=== PATIENT | female | born 1955 | race Caucasian/White ===

== ENCOUNTER 2017-01-19 13:57 | Emergency (ER) | payer OTHER ==
[~2017-01-19] VITALS: Ht 154.9 cm; Wt 52.3 kg
[~2017-01-19 13:57] MED LIST: ALBU8.5H3 INH; AMLO5TAB2 PO; BENA40TA55 PO; CEPH-368 PO; FURO20TA3 PO; METH750T87 PO; NITR100C PO; OXYC-229 PO; PARO30TA45 PO; SERT50TA PO
[2017-01-19] MEDS ORDERED: SODIUM CHLORIDE 0.9% 1,000 ML IV ONE (15:59)
[2017-01-19] MEDS ORDERED: LORazepam 2 MG/ML, 1ML IVPush STA (15:59)
[2017-01-19] MEDS ORDERED: SODIUM CHLORIDE FLUSH 10ML SYR IVF ONE (16:00)
[2017-01-19] MEDS ORDERED: HYDROmorphone 1 MG/ML, 1ML IVPush PRN (16:00)
[2017-01-19] MEDS ORDERED: HYDROmorphone 1 MG/ML, 1ML ONE (16:32)
[2017-01-19] MEDS ORDERED: LORazepam 2 MG/ML, 1ML ONE (16:33)
[2017-01-19 16:37] LABS: BLOOD UREA NITROGEN 5 mg/dL (7-18)
[2017-01-19 19:08] VITALS: BP 153/66
== END 2017-01-19 19:55 | disposition home or self-care (01) ==
LOC: ED 19:07
DX: M51.16 Intervertebral disc disorders with radiculopathy, lumbar region (principal); M51.36 Other intervertebral disc degeneration, lumbar region; I10 Essential (primary) hypertension
CPT/HCPCS: 36415; 72148; 80048; 82040; 85025; 96361; 96374; 96375; 99285; J1170; J2060; J7030; J7512

== ENCOUNTER 2019-01-09 14:04 | Inpatient (IN) | payer OTHER ==
[~2019-01-09] VITALS: Ht 156.2 cm; Wt 55.5 kg
[~2019-01-09 14:04] MED LIST changes: -ALBU8.5H3 INH; +ALBU8.5H8 INH; +AMLO-150 PO; -AMLO5TAB2 PO; -OXYC-229 PO; +OXYC-307 PO
--- NOTE | 2019-01-09 14:43 | NUR ---
LUNCH RN: PT PRESENTING TO ER FOR PAIN AND SWELLING OF RIGHT SIDE FACE X2 MONTHS. PT REPORTING WISDONE TOOTH REMOVED RIGHT SIDE TWO MONTHS AGO, SEEN AT [facility]LE DENTISTS PLACED ON ABX, CURRENTLY TAKING SECOND ROUND OF CLINDAMYCIN WITHOUT RELIEF OF PAIN AND SWELLING. STATES HAD US DONE IN [place] LAST WEEK, NO RESULTS REPORTED. CONNECTED TO MONITORING, HTN. SON AT BEDSIDE. CALL LIGHT WITHIN REACH. AWAITING ORDERS AT THIS TIME
--- NOTE | 2019-01-09 14:57 | NUR ---
LUNCH RN: MD TO BEDSIDE FOR INITIAL ASSESSMENT. AWAITING ORDERS AT THIS TIME
[2019-01-09] MEDS ORDERED: SODIUM CHLORIDE FLUSH 10ML SYR IVF ONE (15:00)
[2019-01-09] MEDS ORDERED: ONDANSETRON 2MG/ML, 2ML IVPush ONE (15:00)
[2019-01-09] MEDS ORDERED: MORPHINE SULFATE 4 MG/ML, 1ML ONE ×3 (15:04→17:30)
[2019-01-09] MEDS ORDERED: ONDANSETRON 2MG/ML, 2ML ONE (15:04)
[2019-01-09] MEDS: MORPHINE SULFATE 4 MG/ML, 1ML IVPush PRN ×2 (15:22→16:13)
--- NOTE | 2019-01-09 15:24 | NUR ---
Provided medicaiton per EMAR. Pt resting on gurney with warm blankets and keven hugger blanket warmer provided for comfort measures. Pt connected to NIBP, continous pulse ox, and agricultural production engineer. Both bedrails up for safety measures and call light within reach. NADN. No other needs expressed at this time.
[2019-01-09 15:30] LABS: MEAN CORPUSCULAR HEMOGLOBIN 31.9 pg (27.0-34.8); MEAN CORPUSCULAR HGB CONC 32.8 g/dL (32.4-35.8); MEAN CORPUSCULAR VOLUME 97.4 fL (80-100); MEAN PLATELET VOLUME 6.3 fL (7.4-10.4); PLATELET COUNT 408 x10^3/uL (130-400); RED BLOOD COUNT 4.17 x10^6/uL (3.82-5.3); RED CELL DISTRIBUTION WIDTH 17.5 % (9.6-15.2)
[2019-01-09 15:41] LABS: ALBUMIN 2.2 g/dL (3.4-5.0); ANION GAP 6 mmol/L (5-15); CALCIUM 8.5 mg/dL (8.5-10.1); CHLORIDE 97 mmol/L (98-107)
[2019-01-09 15:48] LABS: BASOPHILS # (AUTO) 0.01 x10^3/uL (0-0.1); BASOPHILS % (AUTO) 0 % (0-1); EOSINOPHILS % (AUTO) 0 % (1-7); LYMPHOCYTES # (AUTO) 0.84 x10^3/uL (1-3.4); LYMPHOCYTES % (AUTO) 4 % (22-44); MONOCYTES # (AUTO) 1.27 x10^3/uL (0.2-0.8); MONOCYTES % (AUTO) 6 % (2-9); NEUTROPHILS # (AUTO) 20.91 x10^3/uL (1.8-6.8); NEUTROPHILS % (AUTO) 91 % (42-75)
[2019-01-09 15:49] LABS: MD SCAN
--- NOTE | 2019-01-09 15:52 | NUR ---
Pt transported on [facility] to imaging.
--- NOTE | 2019-01-09 16:00 | NUR ---
Pt back to room from imaging on [facility]. ANDRAE. Both bed rails up for safety measures, call light within reach. No needs expressed at this time.
[2019-01-09] MEDS ORDERED: OMNIPAQUE 350 MG/ML, 75ML BOTTLE ONE (16:02)
[2019-01-09 16:11] LABS: HCT (SEDRATE) 40.6 % (34.6-47.8)
--- NOTE | 2019-01-09 16:15 | NUR ---
Pt requesting pain relief. Provided pt medicaiton per EMAR. PT appreciative. Pt's pain is 10/10 dental pain.
[2019-01-09] MEDS ORDERED: PIPERACILLIN/TAZO/PMX 3.375GM 50 ML IV ONE (17:00)
[2019-01-09] MEDS ORDERED: PIPERACILLIN/TAZO/PMX 3.375GM 50 ML ONE (17:30)
[2019-01-09] MEDS ORDERED: MORPHINE SULFATE 4 MG/ML, 1ML IVPush PRN ×2 (17:30→18:00)
[2019-01-09] MEDS ORDERED: NICOTINE 14MG/24 HR PATCH.TD24 ONE (17:43)
[2019-01-09] MEDS ORDERED: SODIUM CHLORIDE FLUSH 10ML SYR IVF PRN (18:00)
[2019-01-09] MEDS ORDERED: NICOTINE 14MG/24 HR PATCH.TD24 TD ONE (18:00)
[2019-01-09] MEDS ORDERED: ONDANSETRON 2MG/ML, 2ML IVPush PRN (18:00)
--- NOTE | 2019-01-09 18:12 | NUR ---
Provided report to ELIOT Whelan. All questions answered. Pt ready to transfer to floor from ED.
--- NOTE | 2019-01-09 18:17 | NUR ---
Reviewed pt's home medicaitons with pt. Pt states, "there is a new antidepressant I take, I can't think of the name of it."
--- NOTE | 2019-01-09 18:20 | NUR ---
Pt transfered to floor from ED and left with all personal belongings.
[2019-01-09 18:25] VITALS: BP 127/75
[2019-01-09] MEDS ORDERED: hydrALAzine 20 MG/ML, 1ML IVPush PRN (18:30)
[2019-01-09] MEDS: NICOTINE 21 MG/24 HR PATCH.TD24 TD SCH (18:30)
[2019-01-09] MEDS: SODIUM CHLORIDE 0.9% 1,000 ML IV SCH (20:18)
[2019-01-09] MEDS ORDERED: ALBUTEROL/IPRATROPIUM 2.5MG/0.5MG, 3 ML NPPB PRN (23:00)
[2019-01-09] MEDS ORDERED: morphine SULFATE 10 MG/ML, 1ML ONE (23:45)
[2019-01-09] MEDS: PIPERACILLIN/TAZO/PMX 3.375GM 50 ML IV SCH (23:56)
[2019-01-09] MEDS: morphine SULFATE 10 MG/ML, 1ML IVPush PRN (23:58)
[2019-01-10 00:16] VITALS: BP 117/70
[2019-01-10] MEDS: SODIUM CHLORIDE 0.9% 1,000 ML IV SCH ×2 (03:01→12:00)
[2019-01-10] MEDS: morphine SULFATE 10 MG/ML, 1ML IVPush PRN ×2 (04:04→08:34)
[2019-01-10 05:28] LABS: ALANINE AMINOTRANSFERASE 63 U/L (12-78); ALBUMIN 1.9 g/dL (3.4-5.0); ANION GAP 9 mmol/L (5-15); CALCIUM 7.9 mg/dL (8.5-10.1); CHLORIDE 104 mmol/L (98-107); CREATININE 0.35 mg/dL (0.55-1.02); MEAN CORPUSCULAR HEMOGLOBIN 32.9 pg (27.0-34.8); MEAN CORPUSCULAR HGB CONC 33.6 g/dL (32.4-35.8); MEAN CORPUSCULAR VOLUME 97.8 fL (80-100); MEAN PLATELET VOLUME 6.5 fL (7.4-10.4); PLATELET COUNT 350 x10^3/uL (130-400); RED BLOOD COUNT 3.78 x10^6/uL (3.82-5.3); RED CELL DISTRIBUTION WIDTH 17.4 % (9.6-15.2)
[2019-01-10 05:31] LABS: ALKALINE PHOSPHATASE 147 U/L (45-117); BILIRUBIN,TOTAL 0.8 mg/dL (0.2-1.0); TOTAL PROTEIN 4.9 g/dL (6.4-8.2)
[2019-01-10 06:31] LABS: BASOPHILS % (AUTO) 0 % (0-1); EOSINOPHILS % (AUTO) 0 % (1-7); LYMPHOCYTES # (AUTO) 0.21 x10^3/uL (1-3.4); LYMPHOCYTES % (AUTO) 1 % (22-44); MD SCAN; MONOCYTES # (AUTO) 0.03 x10^3/uL (0.2-0.8); MONOCYTES % (AUTO) 0 % (2-9); NEUTROPHILS # (AUTO) 14.37 x10^3/uL (1.8-6.8); NEUTROPHILS % (AUTO) 98 % (42-75)
[2019-01-10] MEDS: PIPERACILLIN/TAZO/PMX 3.375GM 50 ML IV SCH ×3 (06:41→17:46)
[2019-01-10 06:47] VITALS: BP 121/66
[2019-01-10] MEDS: ALBUTEROL/IPRATROPIUM 2.5MG/0.5MG, 3 ML NPPB SCH ×4 (07:30→19:35)
[2019-01-10] MEDS ORDERED: MORPHINE SULFATE 4 MG/ML, 1ML IVPush PRN (11:00)
[2019-01-10 12:01] VITALS: BP 131/81
[2019-01-10] MEDS ORDERED: BUPIVACAINE/PF 0.25% ONE (12:27)
[2019-01-10] MEDS ORDERED: LIDOCAINE 1%, 20ML ONE (12:27)
[2019-01-10] MEDS ORDERED: EPINEPHRINE 1 MG/ML, 1ML ONE (12:27)
[2019-01-10] MEDS ORDERED: MAGNESIUM SULFATE PMX 2GM/50ML 50 ML IV ONE (12:30)
[2019-01-10] MEDS ORDERED: POTASSIUM CHLORIDE 40 MEQ in SODIUM CHLORIDE 0.9% 500 ML IV ONE (12:30)
[2019-01-10] MEDS ORDERED: MIDAZOLAM 1 MG/ML, 2ML ONE (12:54)
[2019-01-10] MEDS ORDERED: FENTANYL PF 250 MCG/5ML ONE (12:54)
[2019-01-10] MEDS ORDERED: ONDANSETRON 2MG/ML, 2ML ONE ×2 (13:30)
[2019-01-10] MEDS ORDERED: LIDOCAINE-MPF 2% ,5ML ONE (13:30)
[2019-01-10] MEDS ORDERED: PROPOFOL 10 MG/ML, 20ML ONE (13:30)
[2019-01-10] MEDS ORDERED: SUCCINYLCHOLINE 20 MG/ML, 10ML ONE (13:30)
[2019-01-10] MEDS ORDERED: BACITRACIN 50,000 UNIT ONE (13:39)
[2019-01-10] MEDS ORDERED: DEXAMETHASONE 4 MG/ML, 1ML ONE ×2 (13:52)
[2019-01-10] MEDS ORDERED: FENTANYL PF 100 MCG/2ML ONE (14:13)
[2019-01-10] MEDS ORDERED: OXYcodone 5 MG/5 ML ORAL.SOL UDC ONE (14:14)
[2019-01-10] MEDS: FENTANYL PF 100 MCG/2ML IV PRN ×2 (14:15→14:25)
[2019-01-10] MEDS: OXYcodone 5 MG/5 ML ORAL.SOL UDC PO PRN ×2 (14:26→20:03)
[2019-01-10] MEDS ORDERED: MEPERIDINE/PF 25MG/0.5ML IVPush PRN (14:30)
[2019-01-10] MEDS ORDERED: PROMETHAZINE 25 MG/ML, 1ML IV PRN (14:30)
[2019-01-10] MEDS ORDERED: hydrALAzine 20 MG/ML, 1ML IV PRN (14:30)
[2019-01-10] MEDS ORDERED: HALOPERIDOL 5 MG/ML IV PRN (14:30)
[2019-01-10] MEDS ORDERED: LORazepam 2 MG/ML, 1ML IVPush PRN (14:30)
[2019-01-10] MEDS ORDERED: ALBUTEROL/IPRATROPIUM 2.5MG/0.5MG, 3 ML NPPB PRN (14:30)
[2019-01-10] MEDS ORDERED: HYDROmorphone 2 MG/ML, 1ML ONE (14:50)
[2019-01-10] MEDS: HYDROmorphone 2 MG/ML, 1ML IVPush PRN ×2 (14:51→14:58)
[2019-01-10] MEDS: NICOTINE 21 MG/24 HR PATCH.TD24 TD SCH (17:46)
[2019-01-10 19:08] VITALS: BP 153/79
[2019-01-10] MEDS: CHLORHEXIDINE 15 ML UDC MM SCH (20:03)
[2019-01-10] MEDS ORDERED: CHLORHEXIDINE GLUCONATE MOUTHWASH 0.12%, 473ML MM SCH (21:00)
[2019-01-11] MEDS: OXYcodone 5 MG/5 ML ORAL.SOL UDC PO PRN (00:05)
[2019-01-11] MEDS: SODIUM CHLORIDE 0.9% 1,000 ML IV SCH ×2 (00:05→08:24)
[2019-01-11] MEDS: PIPERACILLIN/TAZO/PMX 3.375GM 50 ML IV SCH ×4 (00:05→18:12)
[2019-01-11 00:42] VITALS: BP 123/77
[2019-01-11] MEDS ORDERED: DIPHENHYDRAMINE 50 MG/ML, 1ML IVPush ONE (03:00)
[2019-01-11 03:07] VITALS: BP 121/76
[2019-01-11 04:44] VITALS: BP 141/85
[2019-01-11 05:36] LABS: CHLORIDE 105 mmol/L (98-107); MEAN CORPUSCULAR HEMOGLOBIN 32.8 pg (27.0-34.8); MEAN CORPUSCULAR HGB CONC 33.1 g/dL (32.4-35.8); MEAN PLATELET VOLUME 6.7 fL (7.4-10.4); PLATELET COUNT 282 x10^3/uL (130-400); RED BLOOD COUNT 3.52 x10^6/uL (3.82-5.3); RED CELL DISTRIBUTION WIDTH 17.6 % (9.6-15.2)
[2019-01-11 05:44] LABS: ALANINE AMINOTRANSFERASE 180 U/L (12-78); ALBUMIN 1.9 g/dL (3.4-5.0); ALKALINE PHOSPHATASE 131 U/L (45-117); ANION GAP 6 mmol/L (5-15); BILIRUBIN,TOTAL 0.8 mg/dL (0.2-1.0); CREATININE 0.44 mg/dL (0.55-1.02); TOTAL PROTEIN 5.1 g/dL (6.4-8.2)
[2019-01-11 06:19] LABS: BASOPHILS % (AUTO) 0 % (0-1); EOSINOPHILS % (AUTO) 0 % (1-7); LYMPHOCYTES # (AUTO) 0.34 x10^3/uL (1-3.4); LYMPHOCYTES % (AUTO) 3 % (22-44); MD SCAN; MONOCYTES # (AUTO) 0.32 x10^3/uL (0.2-0.8); MONOCYTES % (AUTO) 3 % (2-9); NEUTROPHILS % (AUTO) 94 % (42-75)
[2019-01-11] MEDS: ALBUTEROL/IPRATROPIUM 2.5MG/0.5MG, 3 ML NPPB SCH (06:35)
[2019-01-11 07:06] VITALS: BP 130/80
[2019-01-11] MEDS: CHLORHEXIDINE 15 ML UDC MM SCH ×2 (08:24→19:20)
[2019-01-11] MEDS: OXYcodone IR 5MG TABLET PO PRN ×4 (09:54→22:19)
[2019-01-11 12:37] VITALS: BP 129/79
[2019-01-11] MEDS: NICOTINE 21 MG/24 HR PATCH.TD24 TD SCH (18:11)
[2019-01-11] MEDS ORDERED: POTASSIUM PHOSPHATE 44 MEQ in SODIUM CHLORIDE 0.9% 500 ML IV ONE (18:30)
[2019-01-11 20:07] VITALS: BP 131/74
[2019-01-11] MEDS: POLYETHYLENE GLYCOL 17 GM PACKET PO SCH (20:07)
[2019-01-11] MEDS: ONDANSETRON 2MG/ML, 2ML IVPush PRN (22:19)
[2019-01-12] MEDS: PIPERACILLIN/TAZO/PMX 3.375GM 50 ML IV SCH ×5 (00:09→23:26)
[2019-01-12 02:04] VITALS: BP 160/96
[2019-01-12] MEDS: OXYcodone IR 5MG TABLET PO PRN ×5 (03:31→21:28)
[2019-01-12 06:00] LABS: BASOPHILS # (AUTO) 0.03 x10^3/uL (0-0.1); BASOPHILS % (AUTO) 0 % (0-1); EOSINOPHILS # (AUTO) 0.02 x10^3/uL (0-0.4); EOSINOPHILS % (AUTO) 0 % (1-7); LYMPHOCYTES # (AUTO) 0.76 x10^3/uL (1-3.4); LYMPHOCYTES % (AUTO) 10 % (22-44); MD NO; MEAN CORPUSCULAR HGB CONC 33.2 g/dL (32.4-35.8); MEAN CORPUSCULAR VOLUME 99.4 fL (80-100); MEAN PLATELET VOLUME 6.8 fL (7.4-10.4); MONOCYTES # (AUTO) 0.75 x10^3/uL (0.2-0.8); MONOCYTES % (AUTO) 10 % (2-9); NEUTROPHILS # (AUTO) 6.06 x10^3/uL (1.8-6.8); NEUTROPHILS % (AUTO) 80 % (42-75); PLATELET COUNT 265 x10^3/uL (130-400); RED BLOOD COUNT 3.28 x10^6/uL (3.82-5.3); RED CELL DISTRIBUTION WIDTH 18.3 % (9.6-15.2)
[2019-01-12 06:04] LABS: ALANINE AMINOTRANSFERASE 105 U/L (12-78); ALBUMIN 1.8 g/dL (3.4-5.0); ANION GAP 6 mmol/L (5-15); CHLORIDE 108 mmol/L (98-107); CREATININE 0.27 mg/dL (0.55-1.02)
[2019-01-12 06:07] LABS: ALKALINE PHOSPHATASE 119 U/L (45-117); BILIRUBIN,TOTAL 0.5 mg/dL (0.2-1.0); TOTAL PROTEIN 4.8 g/dL (6.4-8.2)
[2019-01-12 08:01] VITALS: BP 155/86
[2019-01-12] MEDS: CHLORHEXIDINE 15 ML UDC MM SCH ×2 (08:32→19:43)
[2019-01-12] MEDS: POLYETHYLENE GLYCOL 17 GM PACKET PO SCH (08:33)
[2019-01-12 12:28] VITALS: BP 158/93
[2019-01-12] MEDS: NICOTINE 21 MG/24 HR PATCH.TD24 TD SCH (18:12)
[2019-01-12] MEDS: ONDANSETRON 2MG/ML, 2ML IVPush PRN (19:43)
[2019-01-12 19:55] VITALS: BP 145/74
[2019-01-13 01:58] VITALS: BP 156/87
[2019-01-13] MEDS: OXYcodone IR 5MG TABLET PO PRN ×6 (02:13→20:51)
[2019-01-13] MEDS: PIPERACILLIN/TAZO/PMX 3.375GM 50 ML IV SCH ×2 (05:41→11:13)
[2019-01-13 06:51] VITALS: BP 162/92
[2019-01-13] MEDS: POLYETHYLENE GLYCOL 17 GM PACKET PO SCH (08:15)
[2019-01-13] MEDS: CHLORHEXIDINE 15 ML UDC MM SCH ×2 (08:15→20:34)
[2019-01-13] MEDS: ERTAPENEM 1 GM in SODIUM CHLORIDE 0.9% 50 ML IV SCH (13:06)
[2019-01-13] MEDS: NICOTINE 21 MG/24 HR PATCH.TD24 TD SCH (17:38)
[2019-01-13 20:13] VITALS: BP 150/83
[2019-01-14] MEDS: OXYcodone IR 5MG TABLET PO PRN ×3 (02:19→10:51)
[2019-01-14 02:20] VITALS: BP 155/85
[2019-01-14 07:30] VITALS: BP 158/83
[2019-01-14] MEDS: CHLORHEXIDINE 15 ML UDC MM SCH (08:43)
[2019-01-14] MEDS: POLYETHYLENE GLYCOL 17 GM PACKET PO SCH (08:43)
[2019-01-14] MEDS: ERTAPENEM 1 GM in SODIUM CHLORIDE 0.9% 50 ML IV SCH (12:50)
[2019-01-14] MEDS ORDERED: CHLO473M MM (13:40)
[2019-01-14] MEDS ORDERED: ERTA1VIA IV ×2 (13:40)
[2019-01-14] MEDS ORDERED: NICO-487 TD (13:40)
[2019-01-14] MEDS ORDERED: IBUP-1222 PO (13:40)
== END 2019-01-14 15:10 | disposition home or self-care (01) | DRG 853 ==
LOC: ED 16:03 → SUATTDRO 17:41 → EDIP 18:05 → 4NOR 18:22 → DCLOUNGE 01-14 14:57
PROVIDERS: ADMIT Internal Medicine; ATTEND Internal Medicine
PROC: 0W930ZZ Drainage of Oral Cavity and Throat, Open Approach (ICD-10-PCS; principal; 2019-01-10 13:30)
PROC: 02HV33Z Insertion of Infusion Device into Superior Vena Cava, Percutaneous Approach (ICD-10-PCS; 2019-01-13)
PROC: B5181ZA Fluoroscopy of Superior Vena Cava using Low Osmolar Contrast, Guidance (ICD-10-PCS; 2019-01-13)
PROC: B548ZZA Ultrasonography of Superior Vena Cava, Guidance (ICD-10-PCS; 2019-01-13)
DX: A41.9 Sepsis, unspecified organism (principal); E43 Unspecified severe protein-calorie malnutrition; E87.1 Hypo-osmolality and hyponatremia; L03.211 Cellulitis of face; M60.009 Infective myositis, unspecified site; E83.39 Other disorders of phosphorus metabolism; E83.42 Hypomagnesemia; E87.6 Hypokalemia; F17.200 Nicotine dependence, unspecified, uncomplicated; I10 Essential (primary) hypertension; J44.9 Chronic obstructive pulmonary disease, unspecified; K04.7 Periapical abscess without sinus; K05.6 Periodontal disease, unspecified; K70.10 Alcoholic hepatitis without ascites; R13.10 Dysphagia, unspecified; Z79.899 Other long term (current) drug therapy; Z80.1 Family history of malignant neoplasm of trachea, bronchus and lung; Z88.8 Allergy status to other drugs, medicaments and biological substances; Z68.22 Body mass index [BMI] 22.0-22.9, adult
CPT/HCPCS: 36415; 70100; J3490; J7620; 36573; 70487; 80048; 80053; 82040; 83605; 83735; 84100; 85025; 85651; 86140; 87040; 87070; 87075; 87077; 87186; 87205; 93005; 94640; G0378; J0171; J1100; J1170; J1335; J2250; J2405; J2543; J2704; J3010; J3480; Q9967; C1751; J0330; J1200; J2270; J3475; J7030; J7040

== ENCOUNTER 2019-01-15 12:36 | Inpatient (IN) | payer OTHER ==
[~2019-01-15] VITALS: Ht 154.9 cm; Wt 57.0 kg
[~2019-01-15 12:36] MED LIST changes: +CHLO473M MM; +ERTA1VIA IV; +IBUP-1222 PO; +NICO-487 TD
[2019-01-15 13:25] LABS: MEAN CORPUSCULAR HGB CONC 33.1 g/dL (32.4-35.8); MEAN CORPUSCULAR VOLUME 96.7 fL (80-100); MEAN PLATELET VOLUME 6.8 fL (7.4-10.4); PLATELET COUNT 390 x10^3/uL (130-400); RED BLOOD COUNT 4.05 x10^6/uL (3.82-5.3); RED CELL DISTRIBUTION WIDTH 17.7 % (9.6-15.2)
[2019-01-15 13:27] LABS: ALBUMIN 2.5 g/dL (3.4-5.0); ANION GAP 6 mmol/L (5-15); CALCIUM 8.9 mg/dL (8.5-10.1); CHLORIDE 99 mmol/L (98-107)
[2019-01-15 13:29] LABS: ALANINE AMINOTRANSFERASE 55 U/L (12-78); ALKALINE PHOSPHATASE 156 U/L (45-117); BILIRUBIN,TOTAL 1.2 mg/dL (0.2-1.0); CREATININE 0.52 mg/dL (0.55-1.02); TOTAL PROTEIN 6.5 g/dL (6.4-8.2)
--- NOTE | 2019-01-15 13:45 | NUR ---
OCCUPATIONAL THERAPY DIRECTOR: PT WALKED BACK FROM LOBBY TO ROOM AT THIS TIME. STEADY UPON AMBULATION. NAD NOTED.
--- NOTE | 2019-01-15 13:50 | NUR ---
PT WITH C/O GEN WEAKNESS, STATES "MY NECK AND MY BACK HURT AND IM SO WEAK I JUST WANT TO GET SOME SLEEP". PT REPORTS HAVING DIARRHEA FOR THE PAST 2-3 DAYS. PT WITH LOW K+, ORDERS BEGIN MAINTAINENCE WITH REPLACEMENT. EDMD IN TO EXAMINE PT. PT ON CONT PULSE OX, NIBP, GENERAL MERCHANDISE SALESPERSON. PT MANJIT CURTIS, SOB, AT THIS TIME.
--- NOTE | 2019-01-15 13:53 | NUR ---
late entry for 1530 pt to room at this time.
[2019-01-15 13:59] LABS: BASOPHILS # (AUTO) 0.01 x10^3/uL (0-0.1); BASOPHILS % (AUTO) 0 % (0-1); EOSINOPHILS # (AUTO) 0.03 x10^3/uL (0-0.4); EOSINOPHILS % (AUTO) 0 % (1-7); LYMPHOCYTES # (AUTO) 0.67 x10^3/uL (1-3.4); LYMPHOCYTES % (AUTO) 6 % (22-44); MD SCAN; MONOCYTES # (AUTO) 0.56 x10^3/uL (0.2-0.8); MONOCYTES % (AUTO) 5 % (2-9); NEUTROPHILS # (AUTO) 10.36 x10^3/uL (1.8-6.8); NEUTROPHILS % (AUTO) 89 % (42-75)
[2019-01-15] MEDS ORDERED: NS + 40MEQ KCL 1,000 ML IV SCH (14:00)
[2019-01-15] MEDS ORDERED: SODIUM CHLORIDE FLUSH 10ML SYR IVF PRN (15:00)
--- NOTE | 2019-01-15 15:10 | NUR ---
PT WITH C/O PAIN IN MOUTH, NECK AND BACK. PT WITH ADMIT ORDERS, EDMD TO DEFER PAIN MANAGEMENT TO ADMITTING MD Addendum: 01/15/19 at 1511 by YOLY NO OTHER NEEDS AT THIS TIME
--- NOTE | 2019-01-15 16:00 | NUR ---
ADMITTING MD TO BEDSIDE. ORDERS RECIEVED FOR TORADOL, WILL MEDICATE PT PER MAR
[2019-01-15] MEDS ORDERED: PANTOPRAZOLE 20MG TABLET ONE (16:29)
[2019-01-15] MEDS ORDERED: KETOROLAC 30 MG/1 ML ONE (16:29)
[2019-01-15] MEDS: KETOROLAC 30 MG/1 ML IVPush SCH ×2 (16:31→22:42)
[2019-01-15] MEDS: PANTOPRAZOLE 20MG TABLET PO SCH ×2 (16:31→22:42)
[2019-01-15] MEDS ORDERED: ACETAMINOPHEN 325 MG TABLET PO PRN (17:30)
[2019-01-15] MEDS ORDERED: ONDANSETRON 2MG/ML, 2ML IVPush PRN (17:30)
[2019-01-15] MEDS ORDERED: hydrALAzine 20 MG/ML, 1ML IVPush PRN (17:30)
--- NOTE | 2019-01-15 17:36 | NUR ---
REPORT CALLED TO LI RN, AWAITING TRANSPORT
--- NOTE | 2019-01-15 17:48 | NUR ---
PT CHANGED TO MEDICAL, REPORT NOW GIVEN TO SACHA MCCABE
[2019-01-15] MEDS ORDERED: MAGNESIUM SULFATE PMX 2GM/50ML 50 ML IV ONE (18:00)
[2019-01-15] MEDS: ERTAPENEM 1 GM in SODIUM CHLORIDE 0.9% 50 ML IV SCH (19:30)
[2019-01-15] MEDS: ENOXAPARIN 40 MG/0.4 ML SQ SCH (19:30)
[2019-01-15] MEDS: NICOTINE 21 MG/24 HR PATCH.TD24 TD SCH (19:31)
[2019-01-15] MEDS: OXYcodone/APAP 5/325MG TABLET PO PRN (19:31)
[2019-01-15 19:35] VITALS: BP 177/87
[2019-01-15] MEDS: POTASSIUM CHLORIDE 40 MEQ in SODIUM CHLORIDE 0.9% 500 ML IV SCH (22:41)
[2019-01-16] MEDS: OXYcodone/APAP 5/325MG TABLET PO PRN ×4 (00:47→22:58)
[2019-01-16 02:34] VITALS: BP 157/84
[2019-01-16] MEDS: POTASSIUM CHLORIDE 40 MEQ in SODIUM CHLORIDE 0.9% 500 ML IV SCH ×2 (03:07→10:12)
[2019-01-16] MEDS: KETOROLAC 30 MG/1 ML IVPush SCH ×4 (04:21→22:58)
[2019-01-16 04:57] LABS: BASOPHILS # (AUTO) 0.02 x10^3/uL (0-0.1); BASOPHILS % (AUTO) 0 % (0-1); EOSINOPHILS # (AUTO) 0.05 x10^3/uL (0-0.4); EOSINOPHILS % (AUTO) 1 % (1-7); LYMPHOCYTES # (AUTO) 0.86 x10^3/uL (1-3.4); LYMPHOCYTES % (AUTO) 9 % (22-44); MD NO; MEAN CORPUSCULAR HEMOGLOBIN 32.5 pg (27.0-34.8); MEAN CORPUSCULAR HGB CONC 33.2 g/dL (32.4-35.8); MEAN CORPUSCULAR VOLUME 97.7 fL (80-100); MEAN PLATELET VOLUME 7.3 fL (7.4-10.4); MONOCYTES # (AUTO) 0.97 x10^3/uL (0.2-0.8); MONOCYTES % (AUTO) 10 % (2-9); NEUTROPHILS # (AUTO) 7.85 x10^3/uL (1.8-6.8); NEUTROPHILS % (AUTO) 81 % (42-75); PLATELET COUNT 350 x10^3/uL (130-400); RED BLOOD COUNT 3.37 x10^6/uL (3.82-5.3); RED CELL DISTRIBUTION WIDTH 17.7 % (9.6-15.2)
[2019-01-16 05:00] LABS: ANION GAP 3 mmol/L (5-15); CALCIUM 7.9 mg/dL (8.5-10.1); CHLORIDE 103 mmol/L (98-107)
[2019-01-16 05:05] LABS: ALANINE AMINOTRANSFERASE 40 U/L (12-78); ALKALINE PHOSPHATASE 113 U/L (45-117); BILIRUBIN,TOTAL 0.7 mg/dL (0.2-1.0); CREATININE 0.32 mg/dL (0.55-1.02); TOTAL PROTEIN 5.2 g/dL (6.4-8.2)
[2019-01-16 06:45] VITALS: BP 179/97
[2019-01-16] MEDS: PANTOPRAZOLE 20MG TABLET PO SCH ×2 (08:20→20:42)
[2019-01-16 09:27] LABS: CLOSTRIDIUM DIFFICILE ANTIGEN NEGATIVE; CLOSTRIDIUM DIFFICILE TOXIN NEGATIVE (Negative)
[2019-01-16] MEDS ORDERED: MAGNESIUM SULFATE PMX 2GM/50ML 50 ML IV ONE (10:00)
[2019-01-16 14:00] VITALS: BP 152/80
[2019-01-16] MEDS ORDERED: LIDODERM 5% PATCH TD SCH (14:00)
[2019-01-16] MEDS ORDERED: ALBUTEROL SULFATE 2.5 MG/3 ML ONE (14:02)
[2019-01-16] MEDS: ALBUTEROL SULFATE 2.5 MG/3 ML NPPB PRN (14:10)
[2019-01-16] MEDS: POTASSIUM PHOSPHATE 44 MEQ in SODIUM CHLORIDE 0.9% 500 ML IV SCH ×2 (14:53→22:58)
[2019-01-16] MEDS ORDERED: LIDODERM 5% PATCH TD PRN (15:00)
[2019-01-16] MEDS: ENOXAPARIN 40 MG/0.4 ML SQ SCH (17:23)
[2019-01-16] MEDS: NICOTINE 21 MG/24 HR PATCH.TD24 TD SCH (17:23)
[2019-01-16] MEDS: ERTAPENEM 1 GM in SODIUM CHLORIDE 0.9% 50 ML IV SCH (18:09)
[2019-01-16 18:54] VITALS: BP 158/84
[2019-01-17 00:42] VITALS: BP 161/92
[2019-01-17] MEDS: KETOROLAC 30 MG/1 ML IVPush SCH ×4 (05:00→23:11)
[2019-01-17 05:31] LABS: BASOPHILS # (AUTO) 0.02 x10^3/uL (0-0.1); BASOPHILS % (AUTO) 0 % (0-1); EOSINOPHILS # (AUTO) 0.07 x10^3/uL (0-0.4); EOSINOPHILS % (AUTO) 1 % (1-7); LYMPHOCYTES # (AUTO) 1.15 x10^3/uL (1-3.4); LYMPHOCYTES % (AUTO) 15 % (22-44); MD NO; MEAN CORPUSCULAR HEMOGLOBIN 32.2 pg (27.0-34.8); MEAN CORPUSCULAR HGB CONC 33.1 g/dL (32.4-35.8); MEAN CORPUSCULAR VOLUME 97.3 fL (80-100); MEAN PLATELET VOLUME 7.3 fL (7.4-10.4); MONOCYTES # (AUTO) 1.08 x10^3/uL (0.2-0.8); MONOCYTES % (AUTO) 14 % (2-9); NEUTROPHILS # (AUTO) 5.33 x10^3/uL (1.8-6.8); NEUTROPHILS % (AUTO) 70 % (42-75); PLATELET COUNT 359 x10^3/uL (130-400); RED BLOOD COUNT 3.05 x10^6/uL (3.82-5.3); RED CELL DISTRIBUTION WIDTH 17.6 % (9.6-15.2)
[2019-01-17 05:45] LABS: CHLORIDE 107 mmol/L (98-107)
[2019-01-17 06:04] LABS: ALANINE AMINOTRANSFERASE 28 U/L (12-78); ALKALINE PHOSPHATASE 100 U/L (45-117); ANION GAP 5 mmol/L (5-15); BILIRUBIN,TOTAL 0.9 mg/dL (0.2-1.0); CALCIUM 7.7 mg/dL (8.5-10.1); CREATININE 0.31 mg/dL (0.55-1.02)
[2019-01-17 06:49] VITALS: BP 171/88
[2019-01-17] MEDS: PANTOPRAZOLE 20MG TABLET PO SCH ×2 (08:22→20:12)
[2019-01-17] MEDS: OXYcodone/APAP 5/325MG TABLET PO PRN ×3 (08:22→23:11)
[2019-01-17] MEDS: ALBUTEROL SULFATE 2.5 MG/3 ML NPPB PRN (08:45)
[2019-01-17] MEDS: CHLORHEXIDINE 15 ML UDC MM SCH ×2 (12:45→20:12)
[2019-01-17 12:57] VITALS: BP 147/75
[2019-01-17] MEDS: ERTAPENEM 1 GM in SODIUM CHLORIDE 0.9% 50 ML IV SCH (17:38)
[2019-01-17] MEDS: ENOXAPARIN 40 MG/0.4 ML SQ SCH (17:39)
[2019-01-17] MEDS: NICOTINE 21 MG/24 HR PATCH.TD24 TD SCH (17:39)
[2019-01-17 19:36] VITALS: BP 169/93
[2019-01-18 03:07] VITALS: BP 163/84
[2019-01-18] MEDS: KETOROLAC 30 MG/1 ML IVPush SCH ×4 (04:58→23:16)
[2019-01-18] MEDS: OXYcodone/APAP 5/325MG TABLET PO PRN ×3 (04:59→22:02)
[2019-01-18 05:12] LABS: HCT (SEDRATE) 29.9 % (34.6-47.8)
[2019-01-18 06:43] VITALS: BP 144/86
[2019-01-18] MEDS: PANTOPRAZOLE 20MG TABLET PO SCH ×2 (09:37→20:03)
[2019-01-18] MEDS: CHLORHEXIDINE 15 ML UDC MM SCH ×2 (09:37→21:59)
[2019-01-18 12:52] VITALS: BP 137/76
[2019-01-18] MEDS: NICOTINE 21 MG/24 HR PATCH.TD24 TD SCH (17:09)
[2019-01-18] MEDS: ENOXAPARIN 40 MG/0.4 ML SQ SCH (17:10)
[2019-01-18] MEDS ORDERED: DIPHENHYDRAMINE 25 MG CAPSULE PO PRN (17:30)
[2019-01-18] MEDS: ERTAPENEM 1 GM in SODIUM CHLORIDE 0.9% 50 ML IV SCH (17:37)
[2019-01-18 19:22] VITALS: BP 162/82
[2019-01-19 01:12] VITALS: BP 158/79
[2019-01-19] MEDS: KETOROLAC 30 MG/1 ML IVPush SCH ×3 (05:14→14:43)
[2019-01-19 08:03] VITALS: BP 153/81
[2019-01-19] MEDS: OXYcodone/APAP 5/325MG TABLET PO PRN ×2 (08:31→14:57)
[2019-01-19] MEDS: PANTOPRAZOLE 20MG TABLET PO SCH (08:31)
[2019-01-19] MEDS: CHLORHEXIDINE 15 ML UDC MM SCH (08:31)
[2019-01-19 12:38] VITALS: BP 162/73
[2019-01-19] MEDS: ERTAPENEM 1 GM in SODIUM CHLORIDE 0.9% 50 ML IV SCH (14:57)
[2019-01-19] MEDS ORDERED: ONDA4TAB13 SL (16:08)
[2019-01-19] MEDS ORDERED: ACET325T14 PO (16:08)
[2019-01-19] MEDS ORDERED: ERTA1VIA IV (16:08)
[2019-01-19] MEDS ORDERED: PANT20TA3 PO (16:08)
[2019-01-19] MEDS ORDERED: POTA20PA31 PO (16:08)
== END 2019-01-19 17:27 | DRG 641 ==
LOC: ED 14:33 → EDIP 14:34 → ED 14:35 → 3NW 18:06
PROVIDERS: ADMIT Internal Medicine; ATTEND Internal Medicine
DX: E87.6 Hypokalemia (principal); L03.211 Cellulitis of face; M60.009 Infective myositis, unspecified site; K04.7 Periapical abscess without sinus; K02.9 Dental caries, unspecified; B96.20 Unspecified Escherichia coli [E. coli] as the cause of diseases classified elsewhere; E83.39 Other disorders of phosphorus metabolism; E83.42 Hypomagnesemia; E83.51 Hypocalcemia; F10.10 Alcohol abuse, uncomplicated; F17.200 Nicotine dependence, unspecified, uncomplicated; I10 Essential (primary) hypertension; J44.9 Chronic obstructive pulmonary disease, unspecified; K05.6 Periodontal disease, unspecified; K70.10 Alcoholic hepatitis without ascites; Z80.1 Family history of malignant neoplasm of trachea, bronchus and lung; Z88.8 Allergy status to other drugs, medicaments and biological substances
CPT/HCPCS: 36415; 99285; J7613; 80053; 80074; 83735; 84100; 85025; 85651; 86140; 87324; 93005; 94640; G0378; J1335; J1650; J1885; J3480; J0360; J3475; J7040; Q0163

== ENCOUNTER 2019-10-15 13:52 | Inpatient (IN) | payer OTHER ==
[~2019-10-15] VITALS: Ht 154.9 cm; Wt 44.9 kg
[~2019-10-15 13:52] MED LIST changes: +ACET325T14 PO; +ONDA4TAB13 SL; +PANT20TA3 PO; +POTA20PA31 PO
[2019-10-15 14:39] LABS: BASOPHILS # (AUTO) 0.03 x10^3/uL (0-0.1); BASOPHILS % (AUTO) 0 % (0-1); EOSINOPHILS # (AUTO) 0.01 x10^3/uL (0-0.4); EOSINOPHILS % (AUTO) 0 % (1-7); LYMPHOCYTES % (AUTO) 7 % (22-44); MD NO; MEAN CORPUSCULAR HEMOGLOBIN 33.2 pg (27.0-34.8); MEAN CORPUSCULAR HGB CONC 33.9 g/dL (32.4-35.8); MEAN CORPUSCULAR VOLUME 97.9 fL (80-100); MEAN PLATELET VOLUME 8.5 fL (7.4-10.4); MONOCYTES # (AUTO) 0.74 x10^3/uL (0.2-0.8); MONOCYTES % (AUTO) 4 % (2-9); NEUTROPHILS # (AUTO) 14.88 x10^3/uL (1.8-6.8); NEUTROPHILS % (AUTO) 88 % (42-75); PLATELET COUNT 378 x10^3/uL (130-400); RED BLOOD COUNT 3.76 x10^6/uL (3.82-5.3); RED CELL DISTRIBUTION WIDTH 14.2 % (9.6-15.2)
[2019-10-15 14:50] LABS: ALANINE AMINOTRANSFERASE 23 U/L (12-78); ALBUMIN 2.4 g/dL (3.4-5.0); ANION GAP 14 mmol/L (5-15); CALCIUM 8.8 mg/dL (8.5-10.1); CHLORIDE 90 mmol/L (98-107); CREATININE 1.38 mg/dL (0.55-1.02)
[2019-10-15 14:52] LABS: ALKALINE PHOSPHATASE 153 U/L (45-117); BILIRUBIN,TOTAL 0.7 mg/dL (0.2-1.0); TOTAL PROTEIN 6.1 g/dL (6.4-8.2)
[2019-10-15] MEDS ORDERED: SODIUM CHLORIDE 0.9% 1,000ML IVBOLUS ONE (15:00)
[2019-10-15] MEDS ORDERED: POTASSIUM CHLORIDE 20 MEQ PACKET PO ONE (15:00)
[2019-10-15] MEDS ORDERED: POTASSIUM CHLORIDE 40 MEQ in SODIUM CHLORIDE 0.9% 500 ML IV ONE (15:00)
[2019-10-15] MEDS ORDERED: POTASSIUM CHLORIDE 20 MEQ TAB.ER.PRT ONE (15:06)
[2019-10-15] MEDS ORDERED: POTASSIUM CHLORIDE 20 MEQ PACKET ONE (15:08)
[2019-10-15 15:10] LABS: PROTHROMBIN TIME 10.6 Seconds (9.6-11.5)
--- NOTE | 2019-10-15 15:15 | NUR ---
IV ESTABLISHED BY ELIOT SMITH. PT MEDICATED PER EMAR FOR HYPO K. K GTT REQUESTED FROM PHARMACY. BP/SPO2/ECG MONITORING IN PLACE. NSR ON MONITOR.
--- NOTE | 2019-10-15 15:30 | NUR ---
CONVERSATION HAD WITH ERP REGARDING LABS. PER ERP, NO BC/ABX INFECTION IS NOT SUSPECTED.
--- NOTE | 2019-10-15 15:47 | NUR ---
K+ GTT INITIATED. K+ 2.5. NSR ON MONITOR. ANTWAN CP/DIZZINESS/WEAKNESS. Addendum: 10/15/19 at 1753 by LWEGENER PT AWARE OF NEED FOR UA. UNABLE TO PROVIDE AT THIS TIME.
[2019-10-15] MEDS ORDERED: OXYC-432 PO (15:50)
[2019-10-15] MEDS ORDERED: VENL150T PO (15:50)
[2019-10-15] MEDS ORDERED: DOCUSATE 100 MG CAPSULE PO PRN (17:00)
[2019-10-15] MEDS ORDERED: POLYETHYLENE GLYCOL 17 GM PACKET PO PRN (17:00)
[2019-10-15] MEDS ORDERED: ONDANSETRON ODT 4 MG PO PRN (17:00)
[2019-10-15] MEDS ORDERED: ONDANSETRON 2MG/ML, 2ML IVPush PRN (17:00)
--- NOTE | 2019-10-15 17:24 | NUR ---
PT AMBULATED STEADILY TO RESTROOM TO PROVIDE UA. UA COLLECTED AND WALKED TO LABN. PT TO CT. K+ GTT PAUSED FOR SCAN.
[2019-10-15] MEDS ORDERED: LORazepam 0.5MG TABLET PO PRN (17:30)
[2019-10-15] MEDS: THIAMINE 100MG TABLET PO SCH (17:30)
[2019-10-15] MEDS ORDERED: LORazepam 1MG TABLET PO PRN ×4 (17:30)
[2019-10-15] MEDS ORDERED: OMNIPAQUE 350 MG/ML, 100ML BOTTLE ONE (17:43)
--- NOTE | 2019-10-15 17:54 | NUR ---
REPORT TO ELIOT GALINDO.
[2019-10-15 17:57] LABS: CULTURE INDICATED? YES; MICROSCOPIC INDICATED
[2019-10-15 18:13] LABS: HCT (SEDRATE) 28.2 % (34.6-47.8)
[2019-10-15] MEDS: MIRTAZAPINE 30 MG TABLET PO SCH (20:37)
[2019-10-15] MEDS: FOLIC ACID 1 MG TABLET PO SCH (20:37)
[2019-10-15] MEDS: NICOTINE 14MG/24 HR PATCH.TD24 TD PRN (20:39)
[2019-10-15] MEDS: HEPARIN 5,000 UNITS/ML, 1ML SQ SCH (20:39)
[2019-10-15] MEDS: OXYcodone/APAP 5/325MG TABLET PO PRN ×2 (20:53→20:57)
[2019-10-15] MEDS: NS + 20MEQ KCL 1,000 ML IV SCH (22:33)
[2019-10-15 22:44] VITALS: BP 116/69
[2019-10-16 00:11] VITALS: BP 146/83
[2019-10-16] MEDS: HEPARIN 5,000 UNITS/ML, 1ML SQ SCH ×3 (06:23→20:37)
[2019-10-16] MEDS: NS + 20MEQ KCL 1,000 ML IV SCH ×2 (06:42→20:37)
[2019-10-16 07:48] VITALS: BP 114/79
[2019-10-16 08:43] LABS: BASOPHILS # (AUTO) 0.03 x10^3/uL (0-0.1); BASOPHILS % (AUTO) 0 % (0-1); EOSINOPHILS # (AUTO) 0.05 x10^3/uL (0-0.4); EOSINOPHILS % (AUTO) 0 % (1-7); LYMPHOCYTES # (AUTO) 1.01 x10^3/uL (1-3.4); LYMPHOCYTES % (AUTO) 6 % (22-44); MD NO; MEAN CORPUSCULAR HEMOGLOBIN 33.9 pg (27.0-34.8); MEAN CORPUSCULAR HGB CONC 33.9 g/dL (32.4-35.8); MEAN CORPUSCULAR VOLUME 99.9 fL (80-100); MEAN PLATELET VOLUME 8.3 fL (7.4-10.4); MONOCYTES # (AUTO) 0.63 x10^3/uL (0.2-0.8); MONOCYTES % (AUTO) 4 % (2-9); NEUTROPHILS # (AUTO) 14.26 x10^3/uL (1.8-6.8); NEUTROPHILS % (AUTO) 89 % (42-75); PLATELET COUNT 312 x10^3/uL (130-400); RED BLOOD COUNT 3.22 x10^6/uL (3.82-5.3); RED CELL DISTRIBUTION WIDTH 14.6 % (9.6-15.2)
[2019-10-16 08:44] LABS: HEMOGRAM NOTE RECHECKED
[2019-10-16 08:48] LABS: ANION GAP 9 mmol/L (5-15); CALCIUM 7.7 mg/dL (8.5-10.1); CHLORIDE 111 mmol/L (98-107); CREATININE 0.82 mg/dL (0.55-1.02)
[2019-10-16] MEDS ORDERED: POTASSIUM CHLORIDE 40 MEQ in SODIUM CHLORIDE 0.9% 500 ML IV ONE (09:00)
[2019-10-16] MEDS: THIAMINE 100MG TABLET PO SCH (09:49)
[2019-10-16] MEDS: MULTIVITAMINS/MINERALS TABLET PO SCH (09:49)
[2019-10-16] MEDS: FOLIC ACID 1 MG TABLET PO SCH (09:50)
[2019-10-16] MEDS: OXYcodone/APAP 5/325MG TABLET PO PRN ×2 (11:02→18:33)
[2019-10-16 13:25] VITALS: BP 111/70
--- NOTE | 2019-10-16 14:13 | NUR ---
REC: Outpatient dysphagia therapy; NPO pending MBS results Addendum: 10/16/19 at 1413 by Jasmine MURPHY Amended: Links added.
--- NOTE | 2019-10-16 15:40 | NUR ---
TF goal recs: Jevity 1.2 @ 50 ml/hour, recommend advance slowly, starting at 25 ml/hour and increase 15 ml q 8 - 12 hours, need to monitor phos and mag, replace prn (pt is at risk for refeeding syndrome0
[2019-10-16 19:58] VITALS: BP 97/63
[2019-10-16] MEDS: MIRTAZAPINE 30 MG TABLET PO SCH (20:37)
[2019-10-16 23:47] LABS: MICROSCOPIC AUTO
[2019-10-16 23:48] LABS: CULTURE INDICATED? YES
[2019-10-17 00:38] VITALS: BP 129/82
[2019-10-17] MEDS: NS + 20MEQ KCL 1,000 ML IV SCH ×2 (05:28→14:02)
[2019-10-17] MEDS: HEPARIN 5,000 UNITS/ML, 1ML SQ SCH ×3 (05:33→21:56)
[2019-10-17 06:00] LABS: CHLORIDE 120 mmol/L (98-107)
[2019-10-17 06:06] LABS: ANION GAP 6 mmol/L (5-15); CALCIUM 7.3 mg/dL (8.5-10.1); CREATININE 0.52 mg/dL (0.55-1.02)
[2019-10-17 06:19] LABS: BASOPHILS # (AUTO) 0.02 x10^3/uL (0-0.1); BASOPHILS % (AUTO) 0 % (0-1); EOSINOPHILS # (AUTO) 0.02 x10^3/uL (0-0.4); EOSINOPHILS % (AUTO) 0 % (1-7); LYMPHOCYTES # (AUTO) 0.86 x10^3/uL (1-3.4); LYMPHOCYTES % (AUTO) 9 % (22-44); MD NO; MEAN CORPUSCULAR VOLUME 100.1 fL (80-100); MEAN PLATELET VOLUME 8.4 fL (7.4-10.4); MONOCYTES # (AUTO) 0.48 x10^3/uL (0.2-0.8); MONOCYTES % (AUTO) 5 % (2-9); NEUTROPHILS # (AUTO) 8.36 x10^3/uL (1.8-6.8); NEUTROPHILS % (AUTO) 86 % (42-75); PLATELET COUNT 271 x10^3/uL (130-400); RED BLOOD COUNT 2.59 x10^6/uL (3.82-5.3)
[2019-10-17] MEDS: MULTIVITAMINS/MINERALS TABLET PO SCH (08:10)
[2019-10-17] MEDS: THIAMINE 100MG TABLET PO SCH (08:10)
[2019-10-17] MEDS: OXYcodone/APAP 5/325MG TABLET PO PRN ×4 (08:10→21:57)
[2019-10-17] MEDS: NEUTRA PHOS K 250 MG TABLET PO SCH ×3 (08:10→21:57)
[2019-10-17] MEDS: FOLIC ACID 1 MG TABLET PO SCH (08:10)
[2019-10-17 08:28] VITALS: BP 116/77
[2019-10-17] MEDS ORDERED: PIPERACILLIN/TAZO/PMX 3.375GM 50 ML IV SCH (11:00)
[2019-10-17 14:11] VITALS: BP 129/54
[2019-10-17] MEDS: PIPERACILLIN/TAZO/PMX 3.375GM 50 ML IV SCH ×2 (16:09→21:56)
[2019-10-17 19:44] VITALS: BP 108/73
[2019-10-17] MEDS: MIRTAZAPINE 30 MG TABLET PO SCH (21:56)
[2019-10-18] VITALS (8 sets, daily range): BP systolic 69–114; BP diastolic 37–71
[2019-10-18] MEDS: PIPERACILLIN/TAZO/PMX 3.375GM 50 ML IV SCH ×4 (04:08→22:12)
[2019-10-18] MEDS: HEPARIN 5,000 UNITS/ML, 1ML SQ SCH ×2 (06:25→14:14)
[2019-10-18 07:28] LABS: BASOPHILS # (AUTO) 0.02 x10^3/uL (0-0.1); BASOPHILS % (AUTO) 1 % (0-1); EOSINOPHILS # (AUTO) 0.01 x10^3/uL (0-0.4); EOSINOPHILS % (AUTO) 0 % (1-7); LYMPHOCYTES # (AUTO) 0.78 x10^3/uL (1-3.4); LYMPHOCYTES % (AUTO) 19 % (22-44); MD NO; MEAN CORPUSCULAR HEMOGLOBIN 33.3 pg (27.0-34.8); MEAN CORPUSCULAR HGB CONC 32.9 g/dL (32.4-35.8); MEAN CORPUSCULAR VOLUME 101.3 fL (80-100); MEAN PLATELET VOLUME 7.8 fL (7.4-10.4); MONOCYTES # (AUTO) 0.33 x10^3/uL (0.2-0.8); MONOCYTES % (AUTO) 8 % (2-9); NEUTROPHILS # (AUTO) 3.03 x10^3/uL (1.8-6.8); NEUTROPHILS % (AUTO) 73 % (42-75); PLATELET COUNT 267 x10^3/uL (130-400); RED BLOOD COUNT 2.67 x10^6/uL (3.82-5.3); RED CELL DISTRIBUTION WIDTH 14.9 % (9.6-15.2)
[2019-10-18 07:29] LABS: ALANINE AMINOTRANSFERASE 16 U/L (12-78); ALBUMIN 1.6 g/dL (3.4-5.0); ANION GAP 6 mmol/L (5-15); CALCIUM 7.3 mg/dL (8.5-10.1); CHLORIDE 120 mmol/L (98-107)
[2019-10-18 07:31] LABS: ALKALINE PHOSPHATASE 95 U/L (45-117); BILIRUBIN,TOTAL 0.5 mg/dL (0.2-1.0); TOTAL PROTEIN 4.3 g/dL (6.4-8.2)
[2019-10-18] MEDS: OXYcodone/APAP 5/325MG TABLET PO PRN ×2 (07:50→10:38)
[2019-10-18] MEDS: MULTIVITAMINS/MINERALS TABLET PO SCH (08:42)
[2019-10-18] MEDS: FOLIC ACID 1 MG TABLET PO SCH (08:42)
[2019-10-18] MEDS: THIAMINE 100MG TABLET PO SCH (08:42)
[2019-10-18] MEDS: NEUTRA PHOS K 250 MG TABLET PO SCH (08:42)
--- NOTE | 2019-10-18 09:16 | NUR ---
REC: SNF; Pureed/NTL diet
--- NOTE | 2019-10-18 09:17 | NUR ---
REC: Crush meds
[2019-10-18] MEDS ORDERED: VANCOMYCIN PER PHARMACY MC PRN (09:30)
[2019-10-18] MEDS ORDERED: MAGNESIUM SULFATE PMX 2GM/50ML 50 ML IV ONE (09:30)
[2019-10-18] MEDS ORDERED: MIDAZOLAM 1 MG/ML, 5ML ONE (09:45)
[2019-10-18] MEDS ORDERED: PROPOFOL 10 MG/ML, 100ML IV ONE (09:45)
[2019-10-18] MEDS ORDERED: [UNRECOGNIZED DRUG - NUTRITION] IV ONE (09:45)
[2019-10-18] MEDS ORDERED: PHARMACOKINETIC MONITORING MC PRN (10:30)
[2019-10-18] MEDS: VANCOMYCIN 900 MG in SODIUM CHLORIDE 0.9% 100 ML IV SCH (11:39)
[2019-10-18] MEDS: ALBUTEROL/IPRATROPIUM 2.5MG/0.5MG, 3 ML NPPB SCH ×3 (16:00→22:24)
[2019-10-18] MEDS ORDERED: ALBUTEROL/IPRATROPIUM 2.5MG/0.5MG, 3 ML ONE (16:05)
[2019-10-18] MEDS ORDERED: methylPREDNISolone SOD SUCC 125 MG/2 ML ONE (16:20)
[2019-10-18] MEDS ORDERED: FUROSEMIDE 20 MG/2 ML IV ONE (16:30)
[2019-10-18] MEDS ORDERED: methylPREDNISolone SOD SUCC 125 MG/2 ML IVPush SCH (16:30)
[2019-10-18] MEDS ORDERED: GUAIFENESIN 200 MG TABLET PO SCH (17:00)
[2019-10-18] MEDS ORDERED: PANTOPRAZOLE 40 MG IV IVPush SCH (17:00)
[2019-10-18] MEDS: SODIUM CHLORIDE 0.9% 1,000 ML IV SCH (17:27)
[2019-10-18] MEDS ORDERED: FAMOTIDINE 20 MG/2 ML IV SCH (17:30)
[2019-10-18] MEDS ORDERED: LIDOCAINE-MPF 1%, 2ML ENDO PRN (17:30)
[2019-10-18 17:35] LABS: ALANINE AMINOTRANSFERASE 12 U/L (12-78); ALBUMIN 1.1 g/dL (3.4-5.0); ANION GAP 11 mmol/L (5-15); CHLORIDE 118 mmol/L (98-107); CREATININE 0.69 mg/dL (0.55-1.02); TRIGLYCERIDES 51 mg/dL (50-200)
[2019-10-18 17:37] LABS: ALKALINE PHOSPHATASE 63 U/L (45-117); BILIRUBIN,TOTAL 0.3 mg/dL (0.2-1.0)
[2019-10-18 17:55] LABS: MEAN CORPUSCULAR HEMOGLOBIN 33.9 pg (27.0-34.8); MEAN CORPUSCULAR HGB CONC 33.4 g/dL (32.4-35.8); MEAN CORPUSCULAR VOLUME 101.6 fL (80-100); MEAN PLATELET VOLUME 8.2 fL (7.4-10.4); PLATELET COUNT 229 x10^3/uL (130-400); RED BLOOD COUNT 1.58 x10^6/uL (3.82-5.3); RED CELL DISTRIBUTION WIDTH 15.1 % (9.6-15.2)
[2019-10-18 17:57] LABS: BASOPHILS # (AUTO) 0.01 x10^3/uL (0-0.1); BASOPHILS % (AUTO) 0 % (0-1); EOSINOPHILS # (AUTO) 0.01 x10^3/uL (0-0.4); EOSINOPHILS % (AUTO) 0 % (1-7); LYMPHOCYTES # (AUTO) 0.71 x10^3/uL (1-3.4); LYMPHOCYTES % (AUTO) 16 % (22-44); MD NO; MONOCYTES # (AUTO) 0.16 x10^3/uL (0.2-0.8); MONOCYTES % (AUTO) 4 % (2-9); NEUTROPHILS # (AUTO) 3.72 x10^3/uL (1.8-6.8); NEUTROPHILS % (AUTO) 81 % (42-75)
[2019-10-18] MEDS ORDERED: NOREPINEPHRINE 8 MG in SODIUM CHLORIDE 0.9% 242 ML IV PRN (19:00)
[2019-10-18] MEDS: PANTOPRAZOLE 40 MG IV IVPush SCH (19:22)
[2019-10-18] MEDS: MIRTAZAPINE 30 MG TABLET PO SCH (19:23)
[2019-10-18] MEDS ORDERED: ALBUMIN HUMAN 25% 100 ML IV ONE (19:30)
[2019-10-18] MEDS: FENTANYL PF 100 MCG/2ML IVPush PRN (19:40)
[2019-10-19] MEDS: SODIUM CHLORIDE 0.9% 1,000 ML IV SCH ×4 (00:45→22:01)
[2019-10-19] MEDS: PROPOFOL 100 ML IV PRN ×3 (00:48→14:33)
[2019-10-19] MEDS: FENTANYL PF 100 MCG/2ML IVPush PRN ×8 (00:49→19:58)
[2019-10-19 01:00] VITALS: BP 118/69
[2019-10-19] MEDS ORDERED: CALCIUM CHLORIDE 13.6 MEQ in SODIUM CHLORIDE 0.9% 100 ML IV ONE (01:00)
[2019-10-19] MEDS: ALBUTEROL/IPRATROPIUM 2.5MG/0.5MG, 3 ML NPPB SCH ×6 (02:48→22:20)
[2019-10-19] MEDS: PIPERACILLIN/TAZO/PMX 3.375GM 50 ML IV SCH ×4 (03:13→22:00)
[2019-10-19 03:54] LABS: ALANINE AMINOTRANSFERASE 12 U/L (12-78); ANION GAP 9 mmol/L (5-15); CALCIUM 8.2 mg/dL (8.5-10.1); CHLORIDE 120 mmol/L (98-107)
[2019-10-19 03:56] LABS: ALKALINE PHOSPHATASE 45 U/L (45-117); BASOPHILS % (AUTO) 0 % (0-1); BILIRUBIN,TOTAL 1.7 mg/dL (0.2-1.0); EOSINOPHILS % (AUTO) 0 % (1-7); LYMPHOCYTES # (AUTO) 0.34 x10^3/uL (1-3.4); LYMPHOCYTES % (AUTO) 4 % (22-44); MD NO; MEAN CORPUSCULAR HEMOGLOBIN 32.1 pg (27.0-34.8); MEAN CORPUSCULAR HGB CONC 32.5 g/dL (32.4-35.8); MEAN CORPUSCULAR VOLUME 98.8 fL (80-100); MEAN PLATELET VOLUME 8.1 fL (7.4-10.4); MONOCYTES # (AUTO) 0.15 x10^3/uL (0.2-0.8); MONOCYTES % (AUTO) 2 % (2-9); NEUTROPHILS # (AUTO) 8.16 x10^3/uL (1.8-6.8); NEUTROPHILS % (AUTO) 94 % (42-75); PLATELET COUNT 144 x10^3/uL (130-400); RED BLOOD COUNT 2.54 x10^6/uL (3.82-5.3); RED CELL DISTRIBUTION WIDTH 16.6 % (9.6-15.2); TOTAL PROTEIN 3.6 g/dL (6.4-8.2)
[2019-10-19] MEDS: VANCOMYCIN 900 MG in SODIUM CHLORIDE 0.9% 100 ML IV SCH (04:44)
[2019-10-19] MEDS ORDERED: DOCUSATE 50 MG/5 ML, 10ML UDC NG PRN (07:32)
[2019-10-19] MEDS ORDERED: ONDANSETRON ODT 4 MG NG PRN (07:33)
[2019-10-19] MEDS ORDERED: THIAMINE 100MG TABLET NG SCH (07:33)
[2019-10-19] MEDS: PANTOPRAZOLE 40 MG IV IVPush SCH ×2 (07:46→19:57)
[2019-10-19] MEDS: FOLIC ACID 1 MG TABLET NG SCH (07:49)
[2019-10-19] MEDS: MULTIVIT-MINERALS/IRON ORAL SOL NG SCH (09:36)
[2019-10-19] MEDS ORDERED: MAGNESIUM SULFATE PMX 2GM/50ML 50 ML IV ONE (12:00)
[2019-10-19] MEDS ORDERED: ATROPINE SYRINGE 0.1 MG/ML, 10ML ONE (15:17)
[2019-10-19] MEDS ORDERED: HYDROCORTISONE 100 MG INJ. ONE (16:23)
[2019-10-19] MEDS: HYDROCORTISONE 100 MG INJ. IVPush SCH ×2 (16:26→22:01)
[2019-10-19] MEDS ORDERED: LORazepam 2 MG/ML, 1ML ONE (17:23)
[2019-10-19] MEDS ORDERED: LORazepam 2 MG/ML, 1ML IVPush ONE (17:30)
[2019-10-20] MEDS: PROPOFOL 100 ML IV PRN ×3 (00:48→15:31)
[2019-10-20] MEDS: FENTANYL PF 100 MCG/2ML IVPush PRN (02:45)
[2019-10-20] MEDS: ALBUTEROL/IPRATROPIUM 2.5MG/0.5MG, 3 ML NPPB SCH ×6 (03:30→23:51)
[2019-10-20] MEDS: PIPERACILLIN/TAZO/PMX 3.375GM 50 ML IV SCH ×4 (04:00→22:08)
[2019-10-20] MEDS: HYDROCORTISONE 100 MG INJ. IVPush SCH ×4 (04:30→22:33)
[2019-10-20 05:27] LABS: ANION GAP 7 mmol/L (5-15); CALCIUM 7.7 mg/dL (8.5-10.1); CHLORIDE 124 mmol/L (98-107)
[2019-10-20 05:29] LABS: MEAN PLATELET VOLUME 8.5 fL (7.4-10.4); PLATELET COUNT 192 x10^3/uL (130-400); RED BLOOD COUNT 2.47 x10^6/uL (3.82-5.3); RED CELL DISTRIBUTION WIDTH 17.2 % (9.6-15.2)
[2019-10-20 05:36] LABS: CREATININE 0.56 mg/dL (0.55-1.02)
[2019-10-20 05:51] LABS: MD YES
[2019-10-20 05:52] LABS: BAND#(MANUAL) 1.55 x10^3/uL; BANDS%(MANUAL) 11 % (0-7); LYMPH#(MANUAL) 0.14 x10^3/uL (1-3.4); LYMPHS% (MANUAL) 1 % (22-44); MONOS#(MANUAL) 0.28 x10^3/uL (0.3-2.7); MONOS% (MANUAL) 2 % (2-9); SEG#(MANUAL) 12.13 x10^3/uL (1.8-6.8); SEGS% (MANUAL) 86 % (42-75)
[2019-10-20 05:53] LABS: <PLATELET ESTIMATE> ADEQUATE; <PLT MORPHOLOGY> NORMAL PLT MORPH; ANISOCYTOSIS 1+
[2019-10-20] MEDS ORDERED: POTASSIUM CHLORIDE 40 MEQ in SODIUM CHLORIDE 0.9% 100 ML IV ONE ×2 (07:00→16:00)
[2019-10-20] MEDS ORDERED: LORazepam 2 MG/ML, 1ML IVPush ONE (08:00)
[2019-10-20] MEDS: THIAMINE 200 MG in SODIUM CHLORIDE 0.9% 50 ML IV SCH (08:37)
[2019-10-20] MEDS: MULTIVIT-MINERALS/IRON ORAL SOL NG SCH (09:22)
[2019-10-20] MEDS: PANTOPRAZOLE 40 MG IV IVPush SCH ×2 (09:22→19:31)
[2019-10-20] MEDS: FOLIC ACID 1 MG TABLET NG SCH (09:22)
[2019-10-20] MEDS: POTASSIUM CHLORIDE 20 MEQ in DEXTROSE 5% 1,000 ML IV SCH ×2 (16:25→17:00)
[2019-10-21] VITALS (12 sets, daily range): BP systolic 102–136; BP diastolic 66–92
[2019-10-21] MEDS: PROPOFOL 100 ML IV PRN ×3 (02:14→19:46)
[2019-10-21] MEDS: ALBUTEROL/IPRATROPIUM 2.5MG/0.5MG, 3 ML NPPB SCH ×6 (02:48→22:40)
[2019-10-21] MEDS: POTASSIUM CHLORIDE 20 MEQ in DEXTROSE 5% 1,000 ML IV SCH ×2 (03:15→14:44)
[2019-10-21] MEDS: HYDROCORTISONE 100 MG INJ. IVPush SCH ×3 (04:54→20:21)
[2019-10-21] MEDS: PIPERACILLIN/TAZO/PMX 3.375GM 50 ML IV SCH (04:54)
[2019-10-21 05:07] LABS: MEAN CORPUSCULAR HEMOGLOBIN 33.4 pg (27.0-34.8); MEAN CORPUSCULAR VOLUME 98.4 fL (80-100); MEAN PLATELET VOLUME 8.4 fL (7.4-10.4); PLATELET COUNT 184 x10^3/uL (130-400); RED CELL DISTRIBUTION WIDTH 17.1 % (9.6-15.2)
[2019-10-21 05:09] LABS: ANION GAP 9 mmol/L (5-15); CHLORIDE 124 mmol/L (98-107)
[2019-10-21 05:10] LABS: CREATININE 0.56 mg/dL (0.55-1.02); TRIGLYCERIDES 77 mg/dL (50-200)
[2019-10-21 05:37] LABS: BASOPHILS # (AUTO) 0.06 x10^3/uL (0-0.1); BASOPHILS % (AUTO) 1 % (0-1); EOSINOPHILS % (AUTO) 0 % (1-7); LYMPHOCYTES # (AUTO) 0.32 x10^3/uL (1-3.4); LYMPHOCYTES % (AUTO) 3 % (22-44); MD SCAN; MONOCYTES # (AUTO) 0.45 x10^3/uL (0.2-0.8); MONOCYTES % (AUTO) 4 % (2-9); NEUTROPHILS # (AUTO) 11.58 x10^3/uL (1.8-6.8); NEUTROPHILS % (AUTO) 93 % (42-75)
[2019-10-21] MEDS ORDERED: POTASSIUM PHOSPHATE 22 MEQ in SODIUM CHLORIDE 0.9% 500 ML IV ONE (07:00)
[2019-10-21] MEDS: CEFTRIAXONE PMX 2GM/50ML 50 ML IV SCH (07:39)
[2019-10-21] MEDS: MULTIVIT-MINERALS/IRON ORAL SOL NG SCH (08:13)
[2019-10-21] MEDS: PANTOPRAZOLE 40 MG IV IVPush SCH ×2 (08:13→19:45)
[2019-10-21] MEDS: OXYcodone/APAP 5/325MG TABLET NG PRN (08:14)
[2019-10-21] MEDS: FOLIC ACID 1 MG TABLET NG SCH (08:15)
[2019-10-21] MEDS: ALBUMIN HUMAN 25% 100 ML IV SCH ×2 (08:31→18:39)
--- NOTE | 2019-10-21 09:55 | NUR ---
10/20 TF goal: w/ propofol: OSMOLITE 1.2 @ 45M//HR off propofol: OSMOLITE 1.2 @ 50ML/HR SLOW advancement to goal please
[2019-10-21] MEDS: THIAMINE 200 MG in SODIUM CHLORIDE 0.9% 50 ML IV SCH (14:10)
[2019-10-21 17:40] LABS: OCCULT BLOOD POSITIVE (NEGATIVE)
[2019-10-21] MEDS ORDERED: FUROSEMIDE 40 MG/4 ML IV ONE (18:00)
[2019-10-21] MEDS ORDERED: POTASSIUM CHLORIDE 40 MEQ in SODIUM CHLORIDE 0.9% 500 ML IV ONE (18:00)
[2019-10-21] MEDS ORDERED: OMNIPAQUE 350 MG/ML, 100ML BOTTLE ONE (18:28)
[2019-10-21 19:26] LABS: INTERNATIONAL NORMALIZED RATIO 1.08 (0.93-1.1); PROTHROMBIN TIME 11.5 Seconds (9.6-11.5)
[2019-10-22] VITALS (11 sets, daily range): BP systolic 103–157; BP diastolic 57–87
[2019-10-22] MEDS: ALBUMIN HUMAN 25% 100 ML IV SCH ×3 (00:19→16:46)
[2019-10-22] MEDS ORDERED: FUROSEMIDE 20 MG/2 ML IV PRN (01:00)
[2019-10-22] MEDS: PROPOFOL 100 ML IV PRN ×3 (01:37→18:29)
[2019-10-22] MEDS: ALBUTEROL/IPRATROPIUM 2.5MG/0.5MG, 3 ML NPPB SCH ×6 (02:55→23:10)
[2019-10-22] MEDS: HYDROCORTISONE 100 MG INJ. IVPush SCH ×4 (03:36→19:55)
[2019-10-22] MEDS: POTASSIUM CHLORIDE 20 MEQ in DEXTROSE 5% 1,000 ML IV SCH ×2 (05:07→08:48)
[2019-10-22 05:13] LABS: ANION GAP 9 mmol/L (5-15); CALCIUM 7.5 mg/dL (8.5-10.1); CHLORIDE 124 mmol/L (98-107)
[2019-10-22 05:15] LABS: CREATININE 0.49 mg/dL (0.55-1.02)
[2019-10-22 05:17] LABS: PLATELET COUNT 105 x10^3/uL (130-400)
[2019-10-22 05:42] LABS: MEAN CORPUSCULAR HEMOGLOBIN 31.6 pg (27.0-34.8); MEAN CORPUSCULAR HGB CONC 34.5 g/dL (32.4-35.8); MEAN CORPUSCULAR VOLUME 91.6 fL (80-100); MEAN PLATELET VOLUME 9.5 fL (7.4-10.4); RED BLOOD COUNT 2.56 x10^6/uL (3.82-5.3); RED CELL DISTRIBUTION WIDTH 15.2 % (9.6-15.2)
[2019-10-22 06:11] LABS: MD YES
[2019-10-22 06:13] LABS: BAND#(MANUAL) 0.26 x10^3/uL; BANDS%(MANUAL) 2 % (0-7); LYMPH#(MANUAL) 0.26 x10^3/uL (1-3.4); LYMPHS% (MANUAL) 2 % (22-44); METAMYELOCYTES# (MANUAL) 0.13 x10^3/uL (0-0); METAMYELOCYTES% (MANUAL) 1 % (0-1); MONOS% (MANUAL) 7 % (2-9); MYELOCYTES# (MANUAL) 0.26 x10^3/uL (0-0); MYELOCYTES% (MANUAL) 2 % (0-0); NRBC % (MANUAL) 1 % (0-1); SEG#(MANUAL) 11.09 x10^3/uL (1.8-6.8); SEGS% (MANUAL) 86 % (42-75)
[2019-10-22 06:14] LABS: POLYCHROMASIA 1+
[2019-10-22 06:15] LABS: <PLATELET ESTIMATE> DECREASED; <PLT MORPHOLOGY> NORMAL PLT MORPH
[2019-10-22 06:16] LABS: ANISOCYTOSIS 1+
[2019-10-22] MEDS ORDERED: POTASSIUM PHOSPHATE 22 MEQ in SODIUM CHLORIDE 0.9% 500 ML IV ONE (07:00)
[2019-10-22] MEDS ORDERED: MAGNESIUM SULFATE PMX 2GM/50ML 50 ML IV ONE (07:00)
[2019-10-22] MEDS: CEFTRIAXONE PMX 2GM/50ML 50 ML IV SCH (08:00)
[2019-10-22] MEDS ORDERED: TPN PER PHARMACY MC PRN (08:30)
[2019-10-22] MEDS: PANTOPRAZOLE 40 MG IV IVPush SCH (08:52)
[2019-10-22] MEDS: THIAMINE 200 MG in SODIUM CHLORIDE 0.9% 50 ML IV SCH (08:52)
[2019-10-22] MEDS: MULTIVIT-MINERALS/IRON ORAL SOL NG SCH (08:53)
[2019-10-22] MEDS: FOLIC ACID 1 MG TABLET NG SCH (08:53)
[2019-10-22] MEDS ORDERED: SODIUM CHLORIDE 0.9% 1,000 ML IV SCH (09:00)
[2019-10-22] MEDS ORDERED: METOCLOPRAMIDE 5 MG/ML, 2ML IVPush ONE (10:00)
[2019-10-22] MEDS ORDERED: EPINEPHRINE SYRINGE 0.1 MG/ML, 10ML ONE (11:41)
[2019-10-22] MEDS ORDERED: PANTOPRAZOLE 80 MG in SODIUM CHLORIDE 0.9% 50 ML IV ONE (12:30)
[2019-10-22] MEDS: PANTOPRAZOLE 80 MG in SODIUM CHLORIDE 0.9% 100 ML IV SCH ×2 (12:49→22:53)
[2019-10-22] MEDS ORDERED: DEXTROSE 50%, 50ML SYRINGE IVPush PRN (17:00)
[2019-10-22] MEDS ORDERED: [UNRECOGNIZED DRUG - OTHER] IV SCH (17:00)
[2019-10-22] MEDS ORDERED: DEXTROSE 10% 500 ML IV PRN (17:00)
[2019-10-22] MEDS ORDERED: DEXTROSE 5% 1,000 ML IV SCH (17:00)
[2019-10-22] MEDS ORDERED: AMINO ACID 10% IV SCH (17:00)
[2019-10-22] MEDS ORDERED: FAT EMUL IV SCH (17:00)
[2019-10-22] MEDS ORDERED: SMOF TPN IV SCH (17:00)
[2019-10-22] MEDS ORDERED: DEXTROSE 70% IV SCH (17:00)
[2019-10-22] MEDS: FENTANYL PF 100 MCG/2ML IVPush PRN (20:11)
[2019-10-22] MEDS: INSULIN REGULAR MEDIUM DOSE Q6H X 48HRS SQ-INSULIN SCH (23:37)
[2019-10-23] MEDS: FENTANYL PF 100 MCG/2ML IVPush PRN ×2 (00:03→20:27)
[2019-10-23] MEDS: PROPOFOL 100 ML IV PRN ×3 (01:15→21:47)
[2019-10-23] MEDS: ALBUMIN HUMAN 25% 100 ML IV SCH (01:42)
[2019-10-23] MEDS: HYDROCORTISONE 100 MG INJ. IVPush SCH ×4 (02:18→23:17)
[2019-10-23] MEDS: ALBUTEROL/IPRATROPIUM 2.5MG/0.5MG, 3 ML NPPB SCH ×6 (02:45→22:10)
[2019-10-23 05:27] LABS: CALCIUM 8.2 mg/dL (8.5-10.1); CHLORIDE 121 mmol/L (98-107)
[2019-10-23 05:31] LABS: ANION GAP 10 mmol/L (5-15); CREATININE 0.44 mg/dL (0.55-1.02)
[2019-10-23] MEDS: INSULIN REGULAR MEDIUM DOSE Q6H X 48HRS SQ-INSULIN SCH ×3 (06:00→16:27)
[2019-10-23 06:20] LABS: MEAN CORPUSCULAR HGB CONC 34.1 g/dL (32.4-35.8); MEAN CORPUSCULAR VOLUME 90.8 fL (80-100); RED BLOOD COUNT 2.51 x10^6/uL (3.82-5.3); RED CELL DISTRIBUTION WIDTH 15.8 % (9.6-15.2)
[2019-10-23 06:59] LABS: BASOPHILS # (AUTO) 0.03 x10^3/uL (0-0.1); BASOPHILS % (AUTO) 0 % (0-1); EOSINOPHILS % (AUTO) 0 % (1-7); LYMPHOCYTES # (AUTO) 0.39 x10^3/uL (1-3.4); LYMPHOCYTES % (AUTO) 3 % (22-44); MD SCAN; MEAN PLATELET VOLUME 9.6 fL (7.4-10.4); MONOCYTES # (AUTO) 0.19 x10^3/uL (0.2-0.8); MONOCYTES % (AUTO) 2 % (2-9); NEUTROPHILS # (AUTO) 10.97 x10^3/uL (1.8-6.8); NEUTROPHILS % (AUTO) 95 % (42-75); PLATELET COUNT 89 x10^3/uL (130-400)
[2019-10-23] MEDS: CEFTRIAXONE PMX 2GM/50ML 50 ML IV SCH (08:09)
[2019-10-23] MEDS: FOLIC ACID 1 MG TABLET NG SCH (09:00)
[2019-10-23] MEDS: THIAMINE 200 MG in SODIUM CHLORIDE 0.9% 50 ML IV SCH (09:16)
[2019-10-23] MEDS: PANTOPRAZOLE 80 MG in SODIUM CHLORIDE 0.9% 100 ML IV SCH ×2 (11:30→20:26)
[2019-10-23] MEDS ORDERED: FAT EMUL IV SCH (17:00)
[2019-10-23] MEDS ORDERED: DEXTROSE 70% IV SCH (17:00)
[2019-10-23] MEDS ORDERED: AMINO ACID 10% IV SCH (17:00)
[2019-10-23] MEDS ORDERED: SMOF TPN IV SCH (17:00)
[2019-10-23] MEDS ORDERED: [UNRECOGNIZED DRUG - OTHER] IV SCH (17:00)
[2019-10-24] MEDS: ALBUTEROL/IPRATROPIUM 2.5MG/0.5MG, 3 ML NPPB SCH ×7 (02:50→22:15)
[2019-10-24] MEDS: FENTANYL PF 100 MCG/2ML IVPush PRN ×2 (04:22→09:54)
[2019-10-24] MEDS: HYDROCORTISONE 100 MG INJ. IVPush SCH ×2 (04:22→18:17)
[2019-10-24] MEDS: PROPOFOL 100 ML IV PRN (04:29)
[2019-10-24] MEDS: INSULIN REGULAR MEDIUM DOSE Q6H X 48HRS SQ-INSULIN SCH ×4 (06:00→18:00)
[2019-10-24 06:28] LABS: MEAN CORPUSCULAR HGB CONC 33.6 g/dL (32.4-35.8); MEAN CORPUSCULAR VOLUME 92.4 fL (80-100); MEAN PLATELET VOLUME 9.5 fL (7.4-10.4); PLATELET COUNT 119 x10^3/uL (130-400); RED BLOOD COUNT 2.35 x10^6/uL (3.82-5.3); RED CELL DISTRIBUTION WIDTH 15.7 % (9.6-15.2)
[2019-10-24 06:30] LABS: ANION GAP 7 mmol/L (5-15); CALCIUM 7.7 mg/dL (8.5-10.1); CHLORIDE 121 mmol/L (98-107)
[2019-10-24 06:31] LABS: CREATININE 0.45 mg/dL (0.55-1.02); TRIGLYCERIDES 151 mg/dL (50-200)
[2019-10-24 06:48] LABS: BASOPHILS # (AUTO) 0.01 x10^3/uL (0-0.1); BASOPHILS % (AUTO) 0 % (0-1); EOSINOPHILS % (AUTO) 0 % (1-7); LYMPHOCYTES # (AUTO) 0.51 x10^3/uL (1-3.4); LYMPHOCYTES % (AUTO) 4 % (22-44); MD SCAN; MONOCYTES # (AUTO) 0.42 x10^3/uL (0.2-0.8); MONOCYTES % (AUTO) 3 % (2-9); NEUTROPHILS # (AUTO) 11.59 x10^3/uL (1.8-6.8); NEUTROPHILS % (AUTO) 93 % (42-75)
[2019-10-24] MEDS: CEFTRIAXONE PMX 2GM/50ML 50 ML IV SCH (08:00)
[2019-10-24] MEDS: PANTOPRAZOLE 80 MG in SODIUM CHLORIDE 0.9% 100 ML IV SCH ×2 (08:00→20:04)
[2019-10-24] MEDS: THIAMINE 200 MG in SODIUM CHLORIDE 0.9% 50 ML IV SCH (09:54)
[2019-10-24] MEDS: FOLIC ACID 1 MG TABLET NG SCH (09:54)
[2019-10-24] MEDS ORDERED: RACEPINEPHRINE INH 2.25%, 0.5ML NPPB PRN (10:00)
[2019-10-24] MEDS ORDERED: RACEPINEPHRINE INH 2.25%, 0.5ML ONE (10:04)
[2019-10-24] MEDS ORDERED: FUROSEMIDE 40 MG/4 ML ONE (10:18)
[2019-10-24] MEDS ORDERED: FUROSEMIDE 40 MG/4 ML IV ONE (10:30)
[2019-10-24] MEDS ORDERED: FUROSEMIDE 20 MG/2 ML IV ONE (10:30)
[2019-10-24] MEDS ORDERED: LORazepam 2 MG/ML, 1ML ONE (10:53)
[2019-10-24] MEDS ORDERED: LORazepam 2 MG/ML, 1ML IVPush ONE (11:00)
[2019-10-24 14:36] LABS: MEAN CORPUSCULAR HEMOGLOBIN 31.3 pg (27.0-34.8); MEAN CORPUSCULAR HGB CONC 33.9 g/dL (32.4-35.8); MEAN CORPUSCULAR VOLUME 92.3 fL (80-100); MEAN PLATELET VOLUME 9.2 fL (7.4-10.4); PLATELET COUNT 141 x10^3/uL (130-400); RED BLOOD COUNT 2.38 x10^6/uL (3.82-5.3); RED CELL DISTRIBUTION WIDTH 15.8 % (9.6-15.2)
[2019-10-24 14:57] LABS: BASOPHILS # (AUTO) 0.13 x10^3/uL (0-0.1); BASOPHILS % (AUTO) 1 % (0-1); EOSINOPHILS # (AUTO) 0.01 x10^3/uL (0-0.4); EOSINOPHILS % (AUTO) 0 % (1-7); LYMPHOCYTES # (AUTO) 0.82 x10^3/uL (1-3.4); LYMPHOCYTES % (AUTO) 6 % (22-44); MD SCAN; MONOCYTES # (AUTO) 0.88 x10^3/uL (0.2-0.8); MONOCYTES % (AUTO) 6 % (2-9); NEUTROPHILS # (AUTO) 12.29 x10^3/uL (1.8-6.8); NEUTROPHILS % (AUTO) 87 % (42-75)
[2019-10-24] MEDS ORDERED: [UNRECOGNIZED DRUG - OTHER] IV SCH (17:00)
[2019-10-24] MEDS ORDERED: FAT EMUL IV SCH (17:00)
[2019-10-24] MEDS ORDERED: DEXTROSE 70% IV SCH (17:00)
[2019-10-24] MEDS ORDERED: AMINO ACID 10% IV SCH (17:00)
[2019-10-24] MEDS ORDERED: SMOF TPN IV SCH (17:00)
[2019-10-24] MEDS: FILTER, DISP 1.2 MICRON FOR TPN/PVN IV PRN (18:17)
[2019-10-24] MEDS: LORazepam 2 MG/ML, 1ML IVPush PRN (20:04)
[2019-10-25] VITALS (12 sets, daily range): BP systolic 102–152; BP diastolic 55–107
[2019-10-25] MEDS: ALBUTEROL/IPRATROPIUM 2.5MG/0.5MG, 3 ML NPPB SCH ×6 (02:00→22:55)
[2019-10-25] MEDS: HYDROCORTISONE 100 MG INJ. IVPush SCH (03:55)
[2019-10-25] MEDS: LORazepam 2 MG/ML, 1ML IVPush PRN ×3 (03:55→23:44)
[2019-10-25 04:33] LABS: MEAN CORPUSCULAR HEMOGLOBIN 31.5 pg (27.0-34.8); MEAN CORPUSCULAR HGB CONC 34.2 g/dL (32.4-35.8); MEAN CORPUSCULAR VOLUME 91.9 fL (80-100); MEAN PLATELET VOLUME 9.3 fL (7.4-10.4); PLATELET COUNT 150 x10^3/uL (130-400); RED BLOOD COUNT 2.25 x10^6/uL (3.82-5.3); RED CELL DISTRIBUTION WIDTH 15.5 % (9.6-15.2)
[2019-10-25 04:39] LABS: ANION GAP 6 mmol/L (5-15); CALCIUM 7.8 mg/dL (8.5-10.1); CHLORIDE 119 mmol/L (98-107); CREATININE 0.25 mg/dL (0.55-1.02)
[2019-10-25 04:45] LABS: PREALBUMIN 22.7 mg/dL (20.0-40.0)
[2019-10-25 04:56] LABS: BASOPHILS # (AUTO) 0.05 x10^3/uL (0-0.1); BASOPHILS % (AUTO) 0 % (0-1); EOSINOPHILS # (AUTO) 0.07 x10^3/uL (0-0.4); EOSINOPHILS % (AUTO) 1 % (1-7); LYMPHOCYTES # (AUTO) 0.85 x10^3/uL (1-3.4); LYMPHOCYTES % (AUTO) 7 % (22-44); MD SCAN; MONOCYTES # (AUTO) 0.41 x10^3/uL (0.2-0.8); MONOCYTES % (AUTO) 3 % (2-9); NEUTROPHILS # (AUTO) 10.84 x10^3/uL (1.8-6.8); NEUTROPHILS % (AUTO) 89 % (42-75)
[2019-10-25] MEDS: INSULIN REGULAR MEDIUM DOSE QDAY SQ-INSULIN SCH ×2 (05:07→21:00)
[2019-10-25] MEDS: PANTOPRAZOLE 80 MG in SODIUM CHLORIDE 0.9% 100 ML IV SCH (05:34)
[2019-10-25] MEDS: CEFTRIAXONE PMX 2GM/50ML 50 ML IV SCH (08:48)
[2019-10-25] MEDS: FOLIC ACID 1 MG TABLET NG SCH (09:00)
[2019-10-25] MEDS: THIAMINE 200 MG in SODIUM CHLORIDE 0.9% 50 ML IV SCH (09:52)
[2019-10-25] MEDS: PANTOPRAZOLE 40 MG IV IVPush SCH ×2 (09:53→21:46)
[2019-10-25] MEDS: ALBUMIN HUMAN 25% 100 ML IV SCH ×2 (09:53→17:17)
[2019-10-25] MEDS: FUROSEMIDE 20 MG/2 ML IV SCH ×2 (11:40→18:11)
[2019-10-25] MEDS ORDERED: DEXTROSE 70% IV SCH (17:00)
[2019-10-25] MEDS ORDERED: AMINO ACID 10% IV SCH (17:00)
[2019-10-25] MEDS ORDERED: FAT EMUL IV SCH (17:00)
[2019-10-25] MEDS ORDERED: SMOF TPN IV SCH (17:00)
[2019-10-25] MEDS ORDERED: [UNRECOGNIZED DRUG - OTHER] IV SCH (17:00)
[2019-10-25 19:47] LABS: MEAN CORPUSCULAR HEMOGLOBIN 30.8 pg (27.0-34.8); MEAN CORPUSCULAR HGB CONC 34.3 g/dL (32.4-35.8); MEAN CORPUSCULAR VOLUME 89.7 fL (80-100); MEAN PLATELET VOLUME 9.6 fL (7.4-10.4); PLATELET COUNT 141 x10^3/uL (130-400); RED BLOOD COUNT 3.07 x10^6/uL (3.82-5.3); RED CELL DISTRIBUTION WIDTH 15.7 % (9.6-15.2)
[2019-10-25 20:07] LABS: BASOPHILS # (AUTO) 0.14 x10^3/uL (0-0.1); BASOPHILS % (AUTO) 1 % (0-1); EOSINOPHILS % (AUTO) 1 % (1-7); LYMPHOCYTES # (AUTO) 0.87 x10^3/uL (1-3.4); LYMPHOCYTES % (AUTO) 6 % (22-44); MD SCAN; MONOCYTES # (AUTO) 0.52 x10^3/uL (0.2-0.8); MONOCYTES % (AUTO) 4 % (2-9); NEUTROPHILS % (AUTO) 89 % (42-75)
[2019-10-25] MEDS ORDERED: MORPHINE SULFATE 4 MG/ML, 1ML ONE (23:55)
[2019-10-25] MEDS: MORPHINE SULFATE 4 MG/ML, 1ML IVPush PRN (23:58)
[2019-10-26] MEDS: ALBUMIN HUMAN 25% 100 ML IV SCH ×2 (01:16→08:27)
[2019-10-26] MEDS: FUROSEMIDE 20 MG/2 ML IV SCH ×2 (02:23→09:20)
[2019-10-26] MEDS: ALBUTEROL/IPRATROPIUM 2.5MG/0.5MG, 3 ML NPPB SCH ×6 (02:40→23:00)
[2019-10-26 02:58] LABS: BASOPHILS # (AUTO) 0.01 x10^3/uL (0-0.1); BASOPHILS % (AUTO) 0 % (0-1); EOSINOPHILS # (AUTO) 0.25 x10^3/uL (0-0.4); EOSINOPHILS % (AUTO) 2 % (1-7); LYMPHOCYTES # (AUTO) 0.68 x10^3/uL (1-3.4); LYMPHOCYTES % (AUTO) 6 % (22-44); MD NO; MEAN CORPUSCULAR HEMOGLOBIN 30.5 pg (27.0-34.8); MEAN CORPUSCULAR HGB CONC 33.7 g/dL (32.4-35.8); MEAN CORPUSCULAR VOLUME 90.3 fL (80-100); MEAN PLATELET VOLUME 9.4 fL (7.4-10.4); MONOCYTES # (AUTO) 0.55 x10^3/uL (0.2-0.8); MONOCYTES % (AUTO) 5 % (2-9); NEUTROPHILS # (AUTO) 9.78 x10^3/uL (1.8-6.8); NEUTROPHILS % (AUTO) 87 % (42-75); PLATELET COUNT 136 x10^3/uL (130-400); RED BLOOD COUNT 2.65 x10^6/uL (3.82-5.3); RED CELL DISTRIBUTION WIDTH 15.9 % (9.6-15.2)
[2019-10-26] MEDS ORDERED: HYDROCORTISONE 100 MG INJ. IVPush SCH (04:00)
[2019-10-26 06:51] LABS: ANION GAP 6 mmol/L (5-15); CALCIUM 8.1 mg/dL (8.5-10.1); CHLORIDE 117 mmol/L (98-107); CREATININE 0.35 mg/dL (0.55-1.02)
[2019-10-26 07:39] LABS: MEAN CORPUSCULAR HEMOGLOBIN 30.3 pg (27.0-34.8); MEAN CORPUSCULAR HGB CONC 33.3 g/dL (32.4-35.8); MEAN PLATELET VOLUME 9.6 fL (7.4-10.4); PLATELET COUNT 160 x10^3/uL (130-400); RED BLOOD COUNT 2.81 x10^6/uL (3.82-5.3)
[2019-10-26 08:00] LABS: O2 FLOW 4 L/min
[2019-10-26] MEDS: CEFTRIAXONE PMX 2GM/50ML 50 ML IV SCH (08:26)
[2019-10-26] MEDS: PANTOPRAZOLE 40 MG IV IVPush SCH ×2 (08:27→20:08)
[2019-10-26] MEDS: THIAMINE 200 MG in SODIUM CHLORIDE 0.9% 50 ML IV SCH (08:27)
[2019-10-26] MEDS: FOLIC ACID 1 MG TABLET NG SCH (08:27)
[2019-10-26] MEDS ORDERED: POTASSIUM CHLORIDE 40 MEQ in SODIUM CHLORIDE 0.9% 100 ML IV ONE (08:30)
[2019-10-26 08:33] LABS: MD YES
[2019-10-26 08:35] LABS: BAND#(MANUAL) 0.58 x10^3/uL; BANDS%(MANUAL) 4 % (0-7); LYMPH#(MANUAL) 0.43 x10^3/uL (1-3.4); LYMPHS% (MANUAL) 3 % (22-44); MONOS#(MANUAL) 1.01 x10^3/uL (0.3-2.7); MONOS% (MANUAL) 7 % (2-9); SEG#(MANUAL) 12.38 x10^3/uL (1.8-6.8); SEGS% (MANUAL) 86 % (42-75)
[2019-10-26 08:36] LABS: <PLATELET ESTIMATE> ADEQUATE; <PLT MORPHOLOGY> NORMAL PLT MORPH; ANISOCYTOSIS 1+; POLYCHROMASIA 1+
[2019-10-26 08:37] LABS: TOXIC GRAN 1+
[2019-10-26] MEDS ORDERED: BENZOCAINE 20% SPRAY 0.5ML ONE (14:02)
[2019-10-26 14:16] LABS: MEAN CORPUSCULAR HEMOGLOBIN 30.8 pg (27.0-34.8); MEAN CORPUSCULAR VOLUME 90.6 fL (80-100); MEAN PLATELET VOLUME 10.1 fL (7.4-10.4); PLATELET COUNT 155 x10^3/uL (130-400); RED BLOOD COUNT 2.57 x10^6/uL (3.82-5.3); RED CELL DISTRIBUTION WIDTH 16.3 % (9.6-15.2)
[2019-10-26 15:04] LABS: MD YES
[2019-10-26 15:06] LABS: ANISOCYTOSIS 1+; BANDS%(MANUAL) 3 % (0-7); LYMPHS% (MANUAL) 3 % (22-44); METAMYELOCYTES# (MANUAL) 0.13 x10^3/uL (0-0); METAMYELOCYTES% (MANUAL) 1 % (0-1); MONOS#(MANUAL) 0.66 x10^3/uL (0.3-2.7); MONOS% (MANUAL) 5 % (2-9); SEG#(MANUAL) 11.62 x10^3/uL (1.8-6.8); SEGS% (MANUAL) 88 % (42-75)
[2019-10-26 15:07] LABS: <PLATELET ESTIMATE> ADEQUATE; <PLT MORPHOLOGY> NORMAL PLT MORPH; POLYCHROMASIA 1+; TOXIC GRAN 1+
[2019-10-26] MEDS ORDERED: SMOF TPN IV SCH (17:00)
[2019-10-26] MEDS ORDERED: AMINO ACID 10% IV SCH (17:00)
[2019-10-26] MEDS ORDERED: FAT EMUL IV SCH (17:00)
[2019-10-26] MEDS ORDERED: [UNRECOGNIZED DRUG - OTHER] IV SCH (17:00)
[2019-10-26] MEDS ORDERED: DEXTROSE 70% IV SCH (17:00)
[2019-10-26] MEDS: INSULIN REGULAR MEDIUM DOSE QDAY SQ-INSULIN SCH (20:08)
[2019-10-26] MEDS: LORazepam 2 MG/ML, 1ML IVPush PRN (20:08)
[2019-10-27] MEDS: LORazepam 2 MG/ML, 1ML IVPush PRN (01:15)
[2019-10-27] MEDS: ALBUTEROL/IPRATROPIUM 2.5MG/0.5MG, 3 ML NPPB SCH ×3 (03:20→11:00)
[2019-10-27] MEDS ORDERED: HYDROCORTISONE 100 MG INJ. IVPush ONE (04:00)
[2019-10-27] MEDS: MORPHINE SULFATE 4 MG/ML, 1ML IVPush PRN (05:10)
[2019-10-27 05:31] LABS: MEAN CORPUSCULAR HEMOGLOBIN 30.9 pg (27.0-34.8); MEAN CORPUSCULAR HGB CONC 33.6 g/dL (32.4-35.8); MEAN CORPUSCULAR VOLUME 91.9 fL (80-100); MEAN PLATELET VOLUME 9.6 fL (7.4-10.4); PLATELET COUNT 167 x10^3/uL (130-400); RED BLOOD COUNT 2.55 x10^6/uL (3.82-5.3); RED CELL DISTRIBUTION WIDTH 16.5 % (9.6-15.2)
[2019-10-27 05:51] LABS: ANION GAP 3 mmol/L (5-15); CALCIUM 8.7 mg/dL (8.5-10.1); CHLORIDE 113 mmol/L (98-107)
[2019-10-27 05:52] LABS: CREATININE 0.29 mg/dL (0.55-1.02)
[2019-10-27 05:56] LABS: MD YES
[2019-10-27 05:57] LABS: BAND#(MANUAL) 0.12 x10^3/uL; BANDS%(MANUAL) 1 % (0-7); EOS#(MANUAL) 0.12 x10^3/uL (0.0-0.4); EOS% (MANUAL) 1 % (1-7); LYMPH#(MANUAL) 0.74 x10^3/uL (1-3.4); LYMPHS% (MANUAL) 6 % (22-44); MONOS#(MANUAL) 0.62 x10^3/uL (0.3-2.7); MONOS% (MANUAL) 5 % (2-9); SEG#(MANUAL) 10.79 x10^3/uL (1.8-6.8); SEGS% (MANUAL) 87 % (42-75)
[2019-10-27 05:59] LABS: <PLATELET ESTIMATE> ADEQUATE; <PLT MORPHOLOGY> NORMAL PLT MORPH; ANISOCYTOSIS 1+; POLYCHROMASIA 1+; TOXIC GRAN 1+
[2019-10-27] MEDS: CEFTRIAXONE PMX 2GM/50ML 50 ML IV SCH (07:53)
[2019-10-27] MEDS ORDERED: ALBUMIN HUMAN 25% 100 ML IV SCH (09:00)
[2019-10-27] MEDS: FOLIC ACID 1 MG TABLET NG SCH (09:08)
[2019-10-27] MEDS: PANTOPRAZOLE 40 MG IV IVPush SCH ×2 (09:10→21:56)
[2019-10-27] MEDS: PROPOFOL 100 ML IV PRN ×2 (09:30→20:35)
[2019-10-27] MEDS ORDERED: FUROSEMIDE 20 MG/2 ML IV SCH (10:00)
[2019-10-27] MEDS ORDERED: BISACODYL 10 MG SUPP PR PRN (10:30)
[2019-10-27] MEDS ORDERED: SENNA 176 MG/5 ML ORAL SOL NG PRN (10:30)
[2019-10-27] MEDS ORDERED: DEXTROSE 50%, 50ML SYRINGE IVPush PRN (10:30)
[2019-10-27] MEDS ORDERED: GLUCAGON 1 MG IM PRN (10:30)
[2019-10-27] MEDS ORDERED: LACTULOSE 20 GM/30 ML UDC NG PRN (10:30)
[2019-10-27] MEDS ORDERED: PHARMACY MAY ADJ FOR RENAL FX MC SCH (10:30)
[2019-10-27] MEDS: ALBUTEROL/IPRATROPIUM 2.5MG/0.5MG, 3 ML INLINE SCH ×4 (10:30→22:00)
[2019-10-27] MEDS ORDERED: SENNA/DOCUSATE TABLET NG PRN (10:30)
[2019-10-27] MEDS ORDERED: LIDOCAINE-MPF 1%, 2ML ENDO PRN (10:30)
[2019-10-27] MEDS ORDERED: DEXTROSE 4 GM TAB.CHEW PO PRN (10:30)
[2019-10-27] MEDS: THIAMINE 200 MG in SODIUM CHLORIDE 0.9% 50 ML IV SCH (11:44)
[2019-10-27] MEDS ORDERED: PROPOFOL 10 MG/ML, 100ML IV ONE (14:00)
[2019-10-27] MEDS ORDERED: SUCCINYLCHOLINE 20 MG/ML, 10ML ONE (14:00)
[2019-10-27] MEDS ORDERED: ETOMIDATE 20 MG/10 ML ONE (14:00)
[2019-10-27] MEDS ORDERED: [UNRECOGNIZED DRUG - OTHER] IV SCH (17:00)
[2019-10-27] MEDS ORDERED: AMINO ACID 10% IV SCH (17:00)
[2019-10-27] MEDS ORDERED: DEXTROSE 70% IV SCH (17:00)
[2019-10-27] MEDS ORDERED: FAT EMUL IV SCH (17:00)
[2019-10-27] MEDS ORDERED: SMOF TPN IV SCH (17:00)
[2019-10-27] MEDS: FILTER, DISP 1.2 MICRON FOR TPN/PVN IV PRN (17:20)
[2019-10-27] MEDS: INSULIN REGULAR MEDIUM DOSE QDAY SQ-INSULIN SCH (21:00)
[2019-10-27] MEDS: SODIUM CHLORIDE FLUSH 10ML SYR IVF SCH (21:56)
[2019-10-28] VITALS (10 sets, daily range): BP systolic 117–142; BP diastolic 70–85
[2019-10-28] MEDS: ALBUTEROL/IPRATROPIUM 2.5MG/0.5MG, 3 ML INLINE SCH ×6 (02:14→22:24)
[2019-10-28] MEDS: PROPOFOL 100 ML IV PRN ×3 (03:43→18:36)
[2019-10-28 05:06] LABS: ANION GAP 3 mmol/L (5-15); CALCIUM 8.5 mg/dL (8.5-10.1); CHLORIDE 113 mmol/L (98-107)
[2019-10-28 05:08] LABS: CREATININE 0.32 mg/dL (0.55-1.02)
[2019-10-28 06:03] LABS: MEAN CORPUSCULAR HGB CONC 33.5 g/dL (32.4-35.8); MEAN CORPUSCULAR VOLUME 92.7 fL (80-100); MEAN PLATELET VOLUME 9.8 fL (7.4-10.4); PLATELET COUNT 215 x10^3/uL (130-400); RED BLOOD COUNT 2.08 x10^6/uL (3.82-5.3)
[2019-10-28 06:48] LABS: MD YES
[2019-10-28 06:49] LABS: ANISOCYTOSIS 1+; LYMPH#(MANUAL) 0.58 x10^3/uL (1-3.4); LYMPHS% (MANUAL) 6 % (22-44); MONOS#(MANUAL) 0.49 x10^3/uL (0.3-2.7); MONOS% (MANUAL) 5 % (2-9); POLYCHROMASIA 1+; SEG#(MANUAL) 8.63 x10^3/uL (1.8-6.8); SEGS% (MANUAL) 89 % (42-75)
[2019-10-28 06:50] LABS: <PLATELET ESTIMATE> ADEQUATE; <PLT MORPHOLOGY> NORMAL PLT MORPH
[2019-10-28] MEDS: FOLIC ACID 1 MG TABLET NG SCH (09:00)
[2019-10-28] MEDS: CEFTRIAXONE PMX 2GM/50ML 50 ML IV SCH (10:47)
[2019-10-28] MEDS: PANTOPRAZOLE 40 MG IV IVPush SCH (10:51)
[2019-10-28] MEDS ORDERED: EPINEPHRINE SYRINGE 0.1 MG/ML, 10ML ONE (11:45)
[2019-10-28] MEDS: PANTOPRAZOLE 80 MG in SODIUM CHLORIDE 0.9% 100 ML IV SCH (16:35)
[2019-10-28] MEDS: SODIUM CHLORIDE FLUSH 10ML SYR IVF SCH ×2 (16:35→21:14)
[2019-10-28] MEDS: FILTER, DISP 1.2 MICRON FOR TPN/PVN IV PRN (16:35)
[2019-10-28] MEDS ORDERED: AMINO ACID 10% IV SCH (17:00)
[2019-10-28] MEDS ORDERED: SMOF TPN IV SCH (17:00)
[2019-10-28] MEDS ORDERED: DEXTROSE 70% IV SCH (17:00)
[2019-10-28] MEDS ORDERED: FAT EMUL IV SCH (17:00)
[2019-10-28] MEDS ORDERED: [UNRECOGNIZED DRUG - OTHER] IV SCH (17:00)
[2019-10-28] MEDS: INSULIN REGULAR MEDIUM DOSE QDAY SQ-INSULIN SCH (21:00)
[2019-10-29] MEDS: PANTOPRAZOLE 80 MG in SODIUM CHLORIDE 0.9% 100 ML IV SCH ×2 (02:01→12:18)
[2019-10-29] MEDS: ALBUTEROL/IPRATROPIUM 2.5MG/0.5MG, 3 ML INLINE SCH ×6 (02:17→22:21)
[2019-10-29] MEDS: PROPOFOL 100 ML IV PRN ×3 (03:08→19:14)
[2019-10-29 04:29] LABS: BASOPHILS # (AUTO) 0.03 x10^3/uL (0-0.1); BASOPHILS % (AUTO) 0 % (0-1); EOSINOPHILS # (AUTO) 0.07 x10^3/uL (0-0.4); EOSINOPHILS % (AUTO) 1 % (1-7); LYMPHOCYTES # (AUTO) 0.52 x10^3/uL (1-3.4); LYMPHOCYTES % (AUTO) 5 % (22-44); MD NO; MEAN CORPUSCULAR HEMOGLOBIN 30.1 pg (27.0-34.8); MEAN CORPUSCULAR HGB CONC 34.2 g/dL (32.4-35.8); MEAN CORPUSCULAR VOLUME 87.9 fL (80-100); MEAN PLATELET VOLUME 9.8 fL (7.4-10.4); MONOCYTES % (AUTO) 6 % (2-9); NEUTROPHILS # (AUTO) 9.97 x10^3/uL (1.8-6.8); NEUTROPHILS % (AUTO) 88 % (42-75); PLATELET COUNT 267 x10^3/uL (130-400); RED BLOOD COUNT 3.28 x10^6/uL (3.82-5.3); RED CELL DISTRIBUTION WIDTH 20.8 % (9.6-15.2)
[2019-10-29 04:39] LABS: ANION GAP 4 mmol/L (5-15); CALCIUM 8.6 mg/dL (8.5-10.1); CHLORIDE 109 mmol/L (98-107); CREATININE 0.26 mg/dL (0.55-1.02)
[2019-10-29] MEDS: CEFTRIAXONE PMX 2GM/50ML 50 ML IV SCH (08:25)
[2019-10-29] MEDS: FOLIC ACID 1 MG TABLET NG SCH (09:00)
[2019-10-29] MEDS: SODIUM CHLORIDE FLUSH 10ML SYR IVF SCH ×2 (12:18→21:36)
[2019-10-29] MEDS ORDERED: LIDOCAINE GEL 2%, 5ML ONE (14:41)
[2019-10-29] MEDS ORDERED: BENZOCAINE 20% SPRAY 0.5ML ONE (14:41)
[2019-10-29] MEDS ORDERED: DEXTROSE 70% IV SCH (17:00)
[2019-10-29] MEDS ORDERED: AMINO ACID 10% IV SCH (17:00)
[2019-10-29] MEDS ORDERED: [UNRECOGNIZED DRUG - OTHER] IV SCH (17:00)
[2019-10-29] MEDS ORDERED: SMOF TPN IV SCH (17:00)
[2019-10-29] MEDS ORDERED: FAT EMUL IV SCH (17:00)
[2019-10-29] MEDS: FILTER, DISP 1.2 MICRON FOR TPN/PVN IV PRN (18:00)
[2019-10-29] MEDS: INSULIN REGULAR MEDIUM DOSE QDAY SQ-INSULIN SCH (21:32)
[2019-10-29] MEDS: FENTANYL PF 100 MCG/2ML IVPush PRN (21:37)
[2019-10-30] MEDS: PROPOFOL 100 ML IV PRN ×3 (00:20→16:50)
[2019-10-30] MEDS: PANTOPRAZOLE 80 MG in SODIUM CHLORIDE 0.9% 100 ML IV SCH ×3 (01:20→22:36)
[2019-10-30] MEDS: ALBUTEROL/IPRATROPIUM 2.5MG/0.5MG, 3 ML INLINE SCH ×6 (02:30→22:26)
[2019-10-30 03:42] LABS: BASOPHILS # (AUTO) 0.04 x10^3/uL (0-0.1); BASOPHILS % (AUTO) 0 % (0-1); EOSINOPHILS # (AUTO) 0.17 x10^3/uL (0-0.4); EOSINOPHILS % (AUTO) 2 % (1-7); LYMPHOCYTES # (AUTO) 0.56 x10^3/uL (1-3.4); LYMPHOCYTES % (AUTO) 6 % (22-44); MD NO; MEAN CORPUSCULAR HEMOGLOBIN 29.7 pg (27.0-34.8); MEAN CORPUSCULAR HGB CONC 33.3 g/dL (32.4-35.8); MEAN CORPUSCULAR VOLUME 89.2 fL (80-100); MEAN PLATELET VOLUME 9.6 fL (7.4-10.4); MONOCYTES % (AUTO) 6 % (2-9); NEUTROPHILS # (AUTO) 8.74 x10^3/uL (1.8-6.8); NEUTROPHILS % (AUTO) 86 % (42-75); PLATELET COUNT 274 x10^3/uL (130-400); RED BLOOD COUNT 3.17 x10^6/uL (3.82-5.3); RED CELL DISTRIBUTION WIDTH 21.2 % (9.6-15.2)
[2019-10-30 03:45] LABS: ANION GAP 3 mmol/L (5-15); CALCIUM 8.5 mg/dL (8.5-10.1); CHLORIDE 108 mmol/L (98-107); CREATININE 0.31 mg/dL (0.55-1.02); TRIGLYCERIDES 106 mg/dL (50-200)
[2019-10-30] MEDS: CEFTRIAXONE PMX 2GM/50ML 50 ML IV SCH (07:36)
[2019-10-30] MEDS: SODIUM CHLORIDE FLUSH 10ML SYR IVF SCH ×2 (08:21→21:07)
[2019-10-30] MEDS: FOLIC ACID 1 MG TABLET NG SCH (08:21)
[2019-10-30] MEDS: FILTER, DISP 1.2 MICRON FOR TPN/PVN IV PRN (16:46)
[2019-10-30] MEDS ORDERED: [UNRECOGNIZED DRUG - OTHER] IV SCH (17:00)
[2019-10-30] MEDS ORDERED: AMINO ACID 10% IV SCH (17:00)
[2019-10-30] MEDS ORDERED: DEXTROSE 70% IV SCH (17:00)
[2019-10-30] MEDS ORDERED: FAT EMUL IV SCH (17:00)
[2019-10-30] MEDS ORDERED: SMOF TPN IV SCH (17:00)
[2019-10-30] MEDS: OXYcodone/APAP 5/325MG TABLET NG PRN (21:08)
[2019-10-30] MEDS: INSULIN REGULAR MEDIUM DOSE QDAY SQ-INSULIN SCH (21:12)
[2019-10-31] MEDS: PROPOFOL 100 ML IV PRN ×4 (01:12→17:23)
[2019-10-31] MEDS: ALBUTEROL/IPRATROPIUM 2.5MG/0.5MG, 3 ML INLINE SCH ×6 (02:30→22:05)
[2019-10-31 04:27] LABS: BASOPHILS # (AUTO) 0.02 x10^3/uL (0-0.1); BASOPHILS % (AUTO) 0 % (0-1); EOSINOPHILS # (AUTO) 0.18 x10^3/uL (0-0.4); EOSINOPHILS % (AUTO) 2 % (1-7); LYMPHOCYTES % (AUTO) 5 % (22-44); MD NO; MEAN CORPUSCULAR HEMOGLOBIN 30.1 pg (27.0-34.8); MEAN CORPUSCULAR HGB CONC 33.6 g/dL (32.4-35.8); MEAN CORPUSCULAR VOLUME 89.4 fL (80-100); MEAN PLATELET VOLUME 9.4 fL (7.4-10.4); MONOCYTES # (AUTO) 0.49 x10^3/uL (0.2-0.8); MONOCYTES % (AUTO) 5 % (2-9); NEUTROPHILS # (AUTO) 9.33 x10^3/uL (1.8-6.8); NEUTROPHILS % (AUTO) 89 % (42-75); PLATELET COUNT 298 x10^3/uL (130-400); RED BLOOD COUNT 3.09 x10^6/uL (3.82-5.3); RED CELL DISTRIBUTION WIDTH 20.2 % (9.6-15.2)
[2019-10-31 04:40] LABS: ANION GAP 4 mmol/L (5-15); CALCIUM 8.4 mg/dL (8.5-10.1); CHLORIDE 104 mmol/L (98-107)
[2019-10-31] MEDS: SODIUM CHLORIDE FLUSH 10ML SYR IVF SCH ×2 (09:12→20:54)
[2019-10-31] MEDS: FOLIC ACID 1 MG TABLET NG SCH (09:13)
[2019-10-31] MEDS: PANTOPRAZOLE 80 MG in SODIUM CHLORIDE 0.9% 100 ML IV SCH ×2 (09:13→20:53)
[2019-10-31] MEDS: CEFTRIAXONE PMX 2GM/50ML 50 ML IV SCH (09:13)
[2019-10-31] MEDS ORDERED: STERILE WATER IV SCH (17:00)
[2019-10-31] MEDS ORDERED: AMINO ACID 10% IV SCH (17:00)
[2019-10-31] MEDS ORDERED: [UNRECOGNIZED DRUG - OTHER] IV SCH (17:00)
[2019-10-31] MEDS ORDERED: DEXTROSE 70% IV SCH (17:00)
[2019-10-31] MEDS: FILTER, DISP 1.2 MICRON FOR TPN/PVN IV PRN (17:26)
[2019-10-31] MEDS: FENTANYL PF 100 MCG/2ML IVPush PRN (20:54)
[2019-10-31] MEDS: INSULIN REGULAR MEDIUM DOSE QDAY SQ-INSULIN SCH (20:59)
[2019-11-01] MEDS: PROPOFOL 100 ML IV PRN ×5 (00:21→20:06)
[2019-11-01] MEDS: FENTANYL PF 100 MCG/2ML IVPush PRN ×4 (01:20→23:46)
[2019-11-01] MEDS: ALBUTEROL/IPRATROPIUM 2.5MG/0.5MG, 3 ML INLINE SCH ×6 (02:02→22:22)
[2019-11-01 05:02] LABS: BASOPHILS # (AUTO) 0.01 x10^3/uL (0-0.1); BASOPHILS % (AUTO) 0 % (0-1); EOSINOPHILS % (AUTO) 2 % (1-7); HCT (SEDRATE) 27.2 % (34.6-47.8); LYMPHOCYTES # (AUTO) 0.46 x10^3/uL (1-3.4); LYMPHOCYTES % (AUTO) 5 % (22-44); MD NO; MEAN CORPUSCULAR HEMOGLOBIN 29.3 pg (27.0-34.8); MEAN CORPUSCULAR HGB CONC 32.4 g/dL (32.4-35.8); MEAN CORPUSCULAR VOLUME 90.3 fL (80-100); MEAN PLATELET VOLUME 9.8 fL (7.4-10.4); MONOCYTES % (AUTO) 7 % (2-9); NEUTROPHILS # (AUTO) 8.85 x10^3/uL (1.8-6.8); NEUTROPHILS % (AUTO) 87 % (42-75); PLATELET COUNT 327 x10^3/uL (130-400); RED BLOOD COUNT 3.01 x10^6/uL (3.82-5.3); RED CELL DISTRIBUTION WIDTH 20.2 % (9.6-15.2)
[2019-11-01 05:16] LABS: ALBUMIN 2.2 g/dL (3.4-5.0); ANION GAP 7 mmol/L (5-15); CALCIUM 8.5 mg/dL (8.5-10.1); CHLORIDE 105 mmol/L (98-107)
[2019-11-01 05:28] LABS: ALANINE AMINOTRANSFERASE 17 U/L (12-78); ALKALINE PHOSPHATASE 78 U/L (45-117); BILIRUBIN,TOTAL 0.4 mg/dL (0.2-1.0); CREATININE 0.43 mg/dL (0.55-1.02); PREALBUMIN 14.4 mg/dL (20.0-40.0); TOTAL PROTEIN 5.2 g/dL (6.4-8.2)
[2019-11-01] MEDS: PANTOPRAZOLE 80 MG in SODIUM CHLORIDE 0.9% 100 ML IV SCH ×2 (07:51→18:16)
[2019-11-01] MEDS: SODIUM CHLORIDE FLUSH 10ML SYR IVF SCH ×2 (07:51→20:05)
[2019-11-01] MEDS: FOLIC ACID 1 MG TABLET NG SCH (07:51)
[2019-11-01] MEDS: CEFTRIAXONE PMX 2GM/50ML 50 ML IV SCH (07:51)
[2019-11-01] MEDS ORDERED: AMINO ACID 10% IV SCH (17:00)
[2019-11-01] MEDS ORDERED: [UNRECOGNIZED DRUG - OTHER] IV SCH (17:00)
[2019-11-01] MEDS ORDERED: STERILE WATER IV SCH (17:00)
[2019-11-01] MEDS ORDERED: DEXTROSE 70% IV SCH (17:00)
[2019-11-01] MEDS: INSULIN REGULAR MEDIUM DOSE QDAY SQ-INSULIN SCH (20:05)
[2019-11-02] MEDS: PROPOFOL 100 ML IV PRN (01:14)
[2019-11-02] MEDS: ALBUTEROL/IPRATROPIUM 2.5MG/0.5MG, 3 ML INLINE SCH ×2 (01:41→06:30)
[2019-11-02] MEDS: OXYcodone/APAP 5/325MG TABLET NG PRN ×3 (03:24→20:25)
[2019-11-02] MEDS: PANTOPRAZOLE 80 MG in SODIUM CHLORIDE 0.9% 100 ML IV SCH ×2 (03:59→15:21)
[2019-11-02 04:21] LABS: BASOPHILS # (AUTO) 0.02 x10^3/uL (0-0.1); BASOPHILS % (AUTO) 0 % (0-1); EOSINOPHILS # (AUTO) 0.13 x10^3/uL (0-0.4); EOSINOPHILS % (AUTO) 1 % (1-7); LYMPHOCYTES # (AUTO) 0.38 x10^3/uL (1-3.4); LYMPHOCYTES % (AUTO) 4 % (22-44); MD NO; MEAN CORPUSCULAR HEMOGLOBIN 29.9 pg (27.0-34.8); MEAN CORPUSCULAR HGB CONC 33.2 g/dL (32.4-35.8); MONOCYTES # (AUTO) 0.65 x10^3/uL (0.2-0.8); MONOCYTES % (AUTO) 7 % (2-9); NEUTROPHILS # (AUTO) 8.41 x10^3/uL (1.8-6.8); NEUTROPHILS % (AUTO) 88 % (42-75); PLATELET COUNT 305 x10^3/uL (130-400); RED BLOOD COUNT 2.84 x10^6/uL (3.82-5.3); RED CELL DISTRIBUTION WIDTH 20.2 % (9.6-15.2)
[2019-11-02 04:29] LABS: ANION GAP 7 mmol/L (5-15); CALCIUM 8.2 mg/dL (8.5-10.1); CHLORIDE 108 mmol/L (98-107)
[2019-11-02 04:30] LABS: CREATININE 0.39 mg/dL (0.55-1.02); TRIGLYCERIDES 191 mg/dL (50-200)
[2019-11-02] MEDS: CEFTRIAXONE PMX 2GM/50ML 50 ML IV SCH (05:24)
[2019-11-02] MEDS ORDERED: POTASSIUM CHLORIDE 40 MEQ in SODIUM CHLORIDE 0.9% 100 ML IV ONE (05:30)
[2019-11-02] MEDS: POTASSIUM CHLORIDE 10% 40 MEQ/30 ML UDC PO SCH ×2 (08:06→20:25)
[2019-11-02] MEDS: FOLIC ACID 1 MG TABLET NG SCH (08:06)
[2019-11-02] MEDS: SODIUM CHLORIDE FLUSH 10ML SYR IVF SCH ×2 (08:06→20:26)
[2019-11-02] MEDS: INSULIN REGULAR MEDIUM DOSE QDAY SQ-INSULIN SCH (20:25)
[2019-11-03] MEDS ORDERED: SODIUM CHLORIDE INHALATION 7%, 4 ML ONE (00:36)
[2019-11-03] MEDS: ALBUTEROL/IPRATROPIUM 2.5MG/0.5MG, 3 ML NPPB PRN ×2 (00:40→16:00)
[2019-11-03] MEDS: PANTOPRAZOLE 80 MG in SODIUM CHLORIDE 0.9% 100 ML IV SCH (02:38)
[2019-11-03 04:24] LABS: BASOPHILS # (AUTO) 0.02 x10^3/uL (0-0.1); BASOPHILS % (AUTO) 0 % (0-1); EOSINOPHILS # (AUTO) 0.06 x10^3/uL (0-0.4); EOSINOPHILS % (AUTO) 1 % (1-7); LYMPHOCYTES % (AUTO) 4 % (22-44); MD NO; MEAN CORPUSCULAR HEMOGLOBIN 29.6 pg (27.0-34.8); MEAN CORPUSCULAR HGB CONC 32.7 g/dL (32.4-35.8); MEAN CORPUSCULAR VOLUME 90.7 fL (80-100); MEAN PLATELET VOLUME 8.7 fL (7.4-10.4); MONOCYTES # (AUTO) 0.72 x10^3/uL (0.2-0.8); MONOCYTES % (AUTO) 6 % (2-9); NEUTROPHILS # (AUTO) 10.19 x10^3/uL (1.8-6.8); NEUTROPHILS % (AUTO) 89 % (42-75); PLATELET COUNT 322 x10^3/uL (130-400); RED BLOOD COUNT 2.94 x10^6/uL (3.82-5.3); RED CELL DISTRIBUTION WIDTH 19.2 % (9.6-15.2)
[2019-11-03 04:33] LABS: ANION GAP 5 mmol/L (5-15); CALCIUM 8.6 mg/dL (8.5-10.1); CHLORIDE 113 mmol/L (98-107); CREATININE 0.32 mg/dL (0.55-1.02)
[2019-11-03] MEDS: CEFTRIAXONE PMX 2GM/50ML 50 ML IV SCH (05:05)
[2019-11-03] MEDS: SODIUM CHLORIDE FLUSH 10ML SYR IVF SCH ×2 (08:30→21:35)
[2019-11-03] MEDS: FOLIC ACID 1 MG TABLET NG SCH (08:30)
--- NOTE | 2019-11-03 11:25 | NUR ---
REC: NPO with ongoing Tube feed Discharge recommendation is SNF Addendum: 11/03/19 at 1128 by LEMUEL MURPHY Amended: Links added.
[2019-11-03] MEDS: PANTOPRAZOLE 40 MG IV IVPush SCH ×2 (13:52→23:40)
[2019-11-03] MEDS: NICOTINE 14MG/24 HR PATCH.TD24 TD PRN (14:00)
[2019-11-03] MEDS: INSULIN REGULAR MEDIUM DOSE QDAY SQ-INSULIN SCH (21:00)
[2019-11-04] MEDS: CEFTRIAXONE PMX 2GM/50ML 50 ML IV SCH (05:10)
[2019-11-04 06:12] LABS: BASOPHILS # (AUTO) 0.03 x10^3/uL (0-0.1); BASOPHILS % (AUTO) 0 % (0-1); EOSINOPHILS # (AUTO) 0.04 x10^3/uL (0-0.4); EOSINOPHILS % (AUTO) 1 % (1-7); LYMPHOCYTES # (AUTO) 0.47 x10^3/uL (1-3.4); LYMPHOCYTES % (AUTO) 6 % (22-44); MD NO; MEAN CORPUSCULAR HGB CONC 32.8 g/dL (32.4-35.8); MEAN CORPUSCULAR VOLUME 91.4 fL (80-100); MEAN PLATELET VOLUME 9.5 fL (7.4-10.4); MONOCYTES # (AUTO) 0.58 x10^3/uL (0.2-0.8); MONOCYTES % (AUTO) 7 % (2-9); NEUTROPHILS # (AUTO) 7.33 x10^3/uL (1.8-6.8); NEUTROPHILS % (AUTO) 87 % (42-75); PLATELET COUNT 296 x10^3/uL (130-400); RED BLOOD COUNT 2.98 x10^6/uL (3.82-5.3); RED CELL DISTRIBUTION WIDTH 19.1 % (9.6-15.2)
[2019-11-04 06:13] LABS: ANION GAP 6 mmol/L (5-15); CALCIUM 8.6 mg/dL (8.5-10.1); CHLORIDE 114 mmol/L (98-107); CREATININE 0.29 mg/dL (0.55-1.02)
[2019-11-04] MEDS: FLUCONAZOLE 40 MG/ML ORAL SUSP PO SCH (08:18)
[2019-11-04] MEDS: FOLIC ACID 1 MG TABLET NG SCH (08:18)
[2019-11-04] MEDS: SODIUM CHLORIDE FLUSH 10ML SYR IVF SCH ×2 (08:18→20:43)
[2019-11-04] MEDS: PANTOPRAZOLE 40 MG IV IVPush SCH ×2 (13:04→23:50)
[2019-11-04 16:04] VITALS: BP 138/84
[2019-11-04 19:34] VITALS: BP 148/79
[2019-11-04] MEDS: INSULIN REGULAR MEDIUM DOSE QDAY SQ-INSULIN SCH (20:43)
[2019-11-05 00:43] VITALS: BP 127/78
[2019-11-05] MEDS: CEFTRIAXONE PMX 2GM/50ML 50 ML IV SCH (05:30)
[2019-11-05 05:33] LABS: BASOPHILS # (AUTO) 0.04 x10^3/uL (0-0.1); BASOPHILS % (AUTO) 0 % (0-1); EOSINOPHILS # (AUTO) 0.03 x10^3/uL (0-0.4); EOSINOPHILS % (AUTO) 0 % (1-7); LYMPHOCYTES # (AUTO) 0.42 x10^3/uL (1-3.4); LYMPHOCYTES % (AUTO) 5 % (22-44); MD NO; MEAN CORPUSCULAR HEMOGLOBIN 29.4 pg (27.0-34.8); MEAN PLATELET VOLUME 9.1 fL (7.4-10.4); MONOCYTES # (AUTO) 0.54 x10^3/uL (0.2-0.8); MONOCYTES % (AUTO) 6 % (2-9); NEUTROPHILS # (AUTO) 7.96 x10^3/uL (1.8-6.8); NEUTROPHILS % (AUTO) 89 % (42-75); PLATELET COUNT 293 x10^3/uL (130-400); RED BLOOD COUNT 2.89 x10^6/uL (3.82-5.3)
[2019-11-05 05:37] LABS: ANION GAP 2 mmol/L (5-15); CALCIUM 8.5 mg/dL (8.5-10.1); CHLORIDE 115 mmol/L (98-107); CREATININE 0.29 mg/dL (0.55-1.02)
[2019-11-05 08:30] VITALS: BP 138/85
[2019-11-05] MEDS: FOLIC ACID 1 MG TABLET NG SCH (08:31)
[2019-11-05] MEDS: FLUCONAZOLE 40 MG/ML ORAL SUSP PO SCH (08:31)
[2019-11-05] MEDS: SODIUM CHLORIDE FLUSH 10ML SYR IVF SCH ×2 (08:32→21:00)
[2019-11-05 12:49] VITALS: BP 99/64
[2019-11-05] MEDS: PANTOPRAZOLE 40 MG IV IVPush SCH (13:24)
[2019-11-05 20:22] VITALS: BP 119/73
[2019-11-05] MEDS: INSULIN REGULAR MEDIUM DOSE QDAY SQ-INSULIN SCH (21:00)
[2019-11-06] MEDS: PANTOPRAZOLE 40 MG IV IVPush SCH ×2 (00:20→11:42)
[2019-11-06 02:20] VITALS: BP 132/77
[2019-11-06 05:10] LABS: BASOPHILS # (AUTO) 0.02 x10^3/uL (0-0.1); BASOPHILS % (AUTO) 0 % (0-1); EOSINOPHILS # (AUTO) 0.05 x10^3/uL (0-0.4); EOSINOPHILS % (AUTO) 1 % (1-7); LYMPHOCYTES # (AUTO) 0.48 x10^3/uL (1-3.4); LYMPHOCYTES % (AUTO) 5 % (22-44); MD NO; MEAN CORPUSCULAR HEMOGLOBIN 29.4 pg (27.0-34.8); MEAN CORPUSCULAR HGB CONC 31.8 g/dL (32.4-35.8); MEAN CORPUSCULAR VOLUME 92.4 fL (80-100); MEAN PLATELET VOLUME 9.2 fL (7.4-10.4); MONOCYTES # (AUTO) 0.62 x10^3/uL (0.2-0.8); MONOCYTES % (AUTO) 7 % (2-9); NEUTROPHILS % (AUTO) 88 % (42-75); PLATELET COUNT 280 x10^3/uL (130-400); RED CELL DISTRIBUTION WIDTH 19.4 % (9.6-15.2)
[2019-11-06 05:23] LABS: ANION GAP 1 mmol/L (5-15); CALCIUM 8.5 mg/dL (8.5-10.1); CHLORIDE 117 mmol/L (98-107); CREATININE 0.38 mg/dL (0.55-1.02)
[2019-11-06] MEDS: CEFTRIAXONE PMX 2GM/50ML 50 ML IV SCH (06:04)
[2019-11-06 07:18] VITALS: BP 105/63
[2019-11-06] MEDS: ALBUTEROL/IPRATROPIUM 2.5MG/0.5MG, 3 ML NPPB PRN (07:33)
[2019-11-06] MEDS ORDERED: NOREPINEPHRINE 8 MG in SODIUM CHLORIDE 0.9% 242 ML IV PRN ×2 (10:30→10:31)
[2019-11-06] MEDS: SODIUM CHLORIDE FLUSH 10ML SYR IVF SCH (10:39)
[2019-11-06] MEDS: PROPOFOL 100 ML IV PRN ×2 (10:44→17:18)
[2019-11-06] MEDS: FENTANYL PF 100 MCG/2ML IVPush PRN (10:47)
[2019-11-06] MEDS ORDERED: DEXTROSE 4 GM TAB.CHEW PO PRN (11:00)
[2019-11-06] MEDS: ALBUTEROL/IPRATROPIUM 2.5MG/0.5MG, 3 ML INLINE SCH ×2 (11:00→15:00)
[2019-11-06] MEDS ORDERED: DEXTROSE 50%, 50ML SYRINGE IVPush PRN (11:00)
[2019-11-06] MEDS ORDERED: SODIUM CHLORIDE 0.9% 1,000ML IVBOLUS ONE (11:00)
[2019-11-06] MEDS ORDERED: GLUCAGON 1 MG IM PRN (11:00)
[2019-11-06] MEDS ORDERED: BISACODYL 10 MG SUPP PR PRN (11:00)
[2019-11-06] MEDS ORDERED: LACTULOSE 20 GM/30 ML UDC NG PRN (11:00)
[2019-11-06] MEDS ORDERED: ACETAMINOPHEN 650 MG/20.3 ML UDC PO/NG PRN (11:00)
[2019-11-06] MEDS ORDERED: PHARMACY MAY ADJ FOR RENAL FX MC SCH (11:00)
[2019-11-06] MEDS ORDERED: SENNA/DOCUSATE TABLET NG PRN (11:00)
[2019-11-06] MEDS ORDERED: LIDOCAINE-MPF 1%, 2ML ENDO PRN (11:00)
[2019-11-06] MEDS ORDERED: SENNA 176 MG/5 ML ORAL SOL NG PRN (11:00)
[2019-11-06] MEDS ORDERED: FENTANYL PF 100 MCG/2ML IVPush PRN ×2 (11:00)
[2019-11-06 11:16] LABS: ANION GAP 5 mmol/L (5-15); CHLORIDE 120 mmol/L (98-107); CREATININE 0.36 mg/dL (0.55-1.02); TRIGLYCERIDES 74 mg/dL (50-200)
[2019-11-06 11:19] LABS: TROPONIN I 0.026 ng/mL (0.000-0.045)
[2019-11-06 11:31] LABS: MEAN CORPUSCULAR HEMOGLOBIN 29.5 pg (27.0-34.8); MEAN CORPUSCULAR HGB CONC 31.9 g/dL (32.4-35.8); MEAN CORPUSCULAR VOLUME 92.3 fL (80-100); RED BLOOD COUNT 2.82 x10^6/uL (3.82-5.3); RED CELL DISTRIBUTION WIDTH 18.5 % (9.6-15.2)
[2019-11-06 11:34] LABS: MEAN PLATELET VOLUME 9.2 fL (7.4-10.4); PLATELET COUNT 271 x10^3/uL (130-400)
[2019-11-06] MEDS: FLUCONAZOLE 40 MG/ML ORAL SUSP PO SCH (11:34)
[2019-11-06] MEDS: FOLIC ACID 1 MG TABLET NG SCH (11:35)
[2019-11-06 11:39] LABS: MD YES
[2019-11-06 11:42] LABS: BANDS%(MANUAL) 3 % (0-7); BASOS% (MANUAL) 1 % (0-1); LYMPHS% (MANUAL) 3 % (22-44); MONOS% (MANUAL) 3 % (2-9); SEGS% (MANUAL) 90 % (42-75)
[2019-11-06 11:43] LABS: <PLATELET ESTIMATE> ADEQUATE; <PLT MORPHOLOGY> NORMAL PLT MORPH; ANISOCYTOSIS 1+; OVALOCYTES 1+
[2019-11-06] MEDS ORDERED: ACETAMINOPHEN 650 MG SUPP ONE (13:21)
[2019-11-06] MEDS ORDERED: ACETAMINOPHEN 650 MG SUPP PR PRN (13:30)
[2019-11-06 14:34] LABS: MICROSCOPIC AUTO
[2019-11-06 14:38] LABS: CULTURE INDICATED? YES
[2019-11-06] MEDS ORDERED: MICAFUNGIN 100 MG in SODIUM CHLORIDE 0.9% 100 ML IV SCH (16:00)
[2019-11-06] MEDS ORDERED: CEFEPIME 2 GM in DEXTROSE 5% 100 ML IV SCH (16:00)
[2019-11-06 17:05] LABS: TROPONIN I 0.016 ng/mL (0.000-0.045)
[2019-11-06] MEDS ORDERED: MIDAZOLAM 1 MG/ML, 5ML ONE (17:17)
[2019-11-06] MEDS ORDERED: PROPOFOL 10 MG/ML, 100ML IV ONE (17:17)
[2019-11-06] MEDS ORDERED: MORPHINE SULFATE 4 MG/ML, 1ML IV ONE (18:00)
[2019-11-06] MEDS ORDERED: MORPHINE 30MG/30ML PCA.SYR IV SCH (18:00)
[2019-11-06] MEDS ORDERED: ONDANSETRON 2MG/ML, 2ML IV PRN (18:00)
[2019-11-06] MEDS ORDERED: ATROPINE OPHTH SOLN 1%, 5ML PO PRN (18:00)
[2019-11-06] MEDS ORDERED: SCOPOLAMINE 1MG PATCH TD SCH (18:00)
[2019-11-06] MEDS ORDERED: LORazepam 2 MG/ML, 1ML IV ONE (18:00)
[2019-11-06] MEDS ORDERED: LORazepam 2 MG/ML, 1ML IV PRN (18:00)
[2019-11-06] MEDS: MORPHINE SULFATE 4 MG/ML, 1ML IV PRN ×3 (19:41→21:08)
[2019-11-06] MEDS ORDERED: SODIUM CHLORIDE FLUSH 10ML SYR IVF SCH (21:00)
== END 2019-11-06 22:35 | disposition expired | DRG 870 ==
LOC: ED 15:30 → EDIP 15:38 → 4WST 18:03 → CCU 10-18 16:38 → 3N 11-04 11:40 → CCU 11-06 09:59
PROVIDERS: ADMIT Internal Medicine Infectious Disease; ATTEND Internal Medicine
PROC: 5A1955Z Respiratory Ventilation, Greater than 96 Consecutive Hours (ICD-10-PCS; 2019-10-18)
PROC: 30233N1 Transfusion of Nonautologous Red Blood Cells into Peripheral Vein, Percutaneous Approach (ICD-10-PCS; 2019-10-18)
PROC: 0B9B8ZZ Drainage of Left Lower Lobe Bronchus, Via Natural or Artificial Opening Endoscopic (ICD-10-PCS; 2019-10-18)
PROC: 0B948ZZ Drainage of Right Upper Lobe Bronchus, Via Natural or Artificial Opening Endoscopic (ICD-10-PCS; 2019-10-18)
PROC: 0B988ZZ Drainage of Left Upper Lobe Bronchus, Via Natural or Artificial Opening Endoscopic (ICD-10-PCS; 2019-10-18)
PROC: 0B9H8ZZ Drainage of Lung Lingula, Via Natural or Artificial Opening Endoscopic (ICD-10-PCS; 2019-10-18)
PROC: 0B968ZZ Drainage of Right Lower Lobe Bronchus, Via Natural or Artificial Opening Endoscopic (ICD-10-PCS; 2019-10-18)
PROC: 0BH17EZ Insertion of Endotracheal Airway into Trachea, Via Natural or Artificial Opening (ICD-10-PCS; 2019-10-18)
PROC: 0D9670Z Drainage of Stomach with Drainage Device, Via Natural or Artificial Opening (ICD-10-PCS; 2019-10-19)
PROC: 02HV33Z Insertion of Infusion Device into Superior Vena Cava, Percutaneous Approach (ICD-10-PCS; principal; 2019-10-25)
PROC: B548ZZA Ultrasonography of Superior Vena Cava, Guidance (ICD-10-PCS; 2019-10-25)
PROC: 0W3P8ZZ Control Bleeding in Gastrointestinal Tract, Via Natural or Artificial Opening Endoscopic (ICD-10-PCS; 2019-10-28)
PROC: 0T9B70Z Drainage of Bladder with Drainage Device, Via Natural or Artificial Opening (ICD-10-PCS; 2019-11-06)
DX: A41.9 Sepsis, unspecified organism (principal); E43 Unspecified severe protein-calorie malnutrition; G93.41 Metabolic encephalopathy; J69.0 Pneumonitis due to inhalation of food and vomit; J96.01 Acute respiratory failure with hypoxia; J96.02 Acute respiratory failure with hypercapnia; K26.4 Chronic or unspecified duodenal ulcer with hemorrhage; N17.0 Acute kidney failure with tubular necrosis; R65.21 Severe sepsis with septic shock; D62 Acute posthemorrhagic anemia; E27.40 Unspecified adrenocortical insufficiency; Z68.1 Body mass index [BMI] 19.9 or less, adult; E87.0 Hyperosmolality and hypernatremia; E87.1 Hypo-osmolality and hyponatremia; E87.4 Mixed disorder of acid-base balance; F11.20 Opioid dependence, uncomplicated; N39.0 Urinary tract infection, site not specified; Z99.11 Dependence on respirator [ventilator] status; B37.3 Candidiasis of vulva and vagina; B96.20 Unspecified Escherichia coli [E. coli] as the cause of diseases classified elsewhere; D69.59 Other secondary thrombocytopenia; E66.9 Obesity, unspecified; E83.42 Hypomagnesemia; E83.51 Hypocalcemia; E86.0 Dehydration; E87.6 Hypokalemia; F10.20 Alcohol dependence, uncomplicated; F17.200 Nicotine dependence, unspecified, uncomplicated; Z66 Do not resuscitate; F32.9 Major depressive disorder, single episode, unspecified; G89.29 Other chronic pain; I10 Essential (primary) hypertension; J44.9 Chronic obstructive pulmonary disease, unspecified; Z88.8 Allergy status to other drugs, medicaments and biological substances; K20.9 Esophagitis, unspecified; K22.2 Esophageal obstruction; K29.70 Gastritis, unspecified, without bleeding; M27.2 Inflammatory conditions of jaws; R62.7 Adult failure to thrive; Y95 Nosocomial condition; Z78.1 Physical restraint status; Z80.1 Family history of malignant neoplasm of trachea, bronchus and lung; Z98.1 Arthrodesis status
CPT/HCPCS: 36415; 36600; 74018; 74230; 74340; 76000; 84145; 87106; 87338; 96361; 96365; 99291; J3475; J3490; 31622; 36573; 70487; 71045; 71046; 74174; 80048; 80053; 80307; 81001; 82272; 82330; 82533; 82607; 82728; 82803; 82962; 83540; 83550; 83605; 83690; 83735; 84100; 84132; 84134; 84443; 84478; 84484; 85014; 85018; 85025; 85610; 85651; 86140; 86850; 86900; 86923; 87040; 87070; 87075; 87077; 87081; 87086; 87186; 87205; 93005; 93306; 94002; 94003; 94150; 94640; 94660; 95819; G0378; J0610; J0696; J1644; J1940; J2250; J2270; J2405; J2543; J2704; J3010; J3370; J3411; J3480; J7070; P9047; Q9967; C1751; C9113; J0330; J1720; J2060; J2765; J2930; J3420; J7030; J7040; J7050; P9016